=== PATIENT | female | born 1970 | race Caucasian/White ===

== ENCOUNTER 2022-07-19 07:15 | Outpatient (REF) | payer OTHER, SELFPAY ==
[2022-07-19 11:27] LABS: Hematocrit 39.1 % (37.0-47.0); Hemoglobin 12.7 g/dl (12.0-16.0); Mean Corpuscular HGB Conc 32.5 g/dl (31.0-35.0); Mean Corpuscular Hemoglobin 29.7 pg (27.0-33.0); Mean Corpuscular Volume 91.6 fL (80.0-98.0); Platelet Count 224 X10*3/uL (160-400); Red Blood Count 4.27 X10*6/uL (4.20-5.50); Red Cell Distribution Width 12.8 % (11.0-16.0); White Blood Count 3.8 X10*3/uL (4.8-10.8)
[2022-07-19 12:33] LABS: Alanine Aminotransferase 26 U/L (0-31); Albumin Level 4.1 g/dL (3.5-5.0); Alkaline Phosphatase 69 U/L (39-117); Anion Gap 12 (12-20); Aspartate Amino Transferase 27 U/L (5-31); Bilirubin Total 0.6 mg/dL (0.0-1.0); Blood Urea Nitrogen 20 mg/dL (9-16); Carbon Dioxide 27 mmol/L (22-29); Chloride 104 mmol/L (96-108); Cholesterol 206 mg/dL; Estimated Glomerular Filt Rate > 60; Glucose Fasting 94 mg/dL (60-99); HDL Cholesterol 65 mg/dL; LDL Cholesterol Calculated 118 mg/dl; Potassium 4.4 mmol/L (3.3-5.1); Sodium 139 mmol/L (135-145); Total Protein 6.4 g/dL (6.5-8.0); Triglycerides 119 mg/dL
[2022-07-19 12:46] LABS: TSH reflex Free T4 2.31 uIU/mL (0.32-4.0)
[2022-07-19 12:51] LABS: Rheumatoid Factor < 15.0 IU/mL (<15.0)
[2022-07-21 15:46] LABS: Cyclic Citrullinated Peptide <16 UNITS
== END 2022-07-19 07:16 | disposition home or self-care (01) ==
LOC: HO.HMGCLDS 07:15
PROVIDERS: PCP Internal Medicine; Visit Provider Internal Medicine
DX: Z00.00 Encounter for general adult medical examination without abnormal findings (principal); E04.1 Nontoxic single thyroid nodule; M19.90 Unspecified osteoarthritis, unspecified site
CPT/HCPCS: 36415; 80053; 80061; 84443; 85027; 86200; 86431

== ENCOUNTER 2022-08-09 14:26 | Outpatient (REF) | payer OTHER, SELFPAY ==
--- NOTE | ~2022-08-09 | US_ITS ---
EXAMINATION: US PELVIS CLINICAL INFORMATION: Ovarian cyst. COMPARISON: None. TECHNIQUE: Ultrasound of the pelvis is performed using both transabdominal and transvaginal transducers along with Doppler. Transvaginal imaging is performed due to inadequate visualization transabdominally. FINDINGS: UTERUS: The uterus is anteverted retroflex and measures 9.5 x 4.2 x 5.3 cm for a volume of 111 mL. The double wall endometrial thickness is 0.8 mm. The uterus is smooth in contour and has normal myometrial echogenicity. A small 7 x 5 x 7 mm fibroid is noted on the left towards the fundus. Multiple nabothian cysts are present. ADNEXA: The right ovary was removed and is not seen. The left ovary measures 2.6 x 1.4 x 2.0 cm for a volume of 3.8 mL and appears normal. No free fluid is present in the cul-de-sac. US/US pelvic and transvaginal IMPRESSION: Small uterine fibroid. An ovarian cyst is not seen on the current study.
--- NOTE | ~2022-08-09 | US_ITS ---
EXAMINATION: US THYROID CLINICAL INFORMATION: Nontoxic single thyroid nodule. COMPARISON: None TECHNIQUE: Linear transducer manzano-scale and color Doppler examination with attention to the region of the thyroid. FINDINGS: SIZE: Measurements of the thyroid lobes and nodules are given in sagittal, anteroposterior and transverse dimensions respectively. Right Thyroid Lobe: 5.5 x 1.8 x 1.7 cm, volume 8.5 mL. Parenchyma: The gland echotexture is heterogeneous. Thyroid vascularity is increased. Left Thyroid Lobe: 5.9 x 2.3 x 2.2 cm, volume 15.2 mL. Parenchyma: The gland echotexture is heterogeneous. Thyroid vascularity is increased. Isthmus: 0.4 cm in maximum AP dimension. Estimated total number of nodules greater than or equal to 1 cm: 3. Emt P nodules are described as follows: 1. Location: Right mid. Size: 1.1 x 0.8 x 0.8 cm, volume 0.4 mL. Nodule characteristics: Composition: Solid/almost completely solid (2). Echogenicity: Isoechoic (1). Shape: Not taller than wide (0). Margins: Smooth (0). Echogenic Foci: Comet-tail artifacts (0). ACR TI-RADS total points: 3 ACR TI-RADS category: 3 2. Location: Right mid. Size: 0.6 x 0.4 x 0.6 cm, volume 0.07 mL. Nodule characteristics: Composition: Solid/almost completely solid (2). Echogenicity: Isoechoic (1). Shape: Not taller than wide (0). Margins: Smooth (0). Echogenic Foci: None (0). ACR TI-RADS total points: 3 ACR TI-RADS category: 3 3. Location: Left superior/mid. Size: 2.1 x 1.4 x 2.1 cm, volume 3.2 mL. Nodule characteristics: Composition: Solid/almost completely solid (2). Echogenicity: Isoechoic (1). Shape: Not taller than wide (0). Margins: Smooth (0). Echogenic Foci: None (0). ACR TI-RADS total points: 3 ACR TI-RADS category: 3 4. Location: Left mid. Size: 1.4 x 1.4 x 1.3 cm, volume 1.3 mL. Nodule characteristics: Composition: Solid/almost completely solid (2). Echogenicity: Isoechoic (1). Shape: Taller than wide (3). Margins: Smooth (0). Echogenic Foci: None (0). ACR TI-RADS total points: 6 ACR TI-RADS category: 4 5. Location: Isthmus. Size: 0.5 x 0.4 x 0.6 cm, volume 0.06 mL. Nodule characteristics: Composition: Spongiform (0). Echogenicity: Anechoic (0). Shape: Not taller than wide (0). Margins: Smooth (0). Echogenic Foci: None (0). ACR TI-RADS total points: 0 ACR TI-RADS category: 1 NODES: No lymphadenopathy is seen in the tissue surrounding the thyroid gland. US/US thyroid IMPRESSION: Enlarged thyroid gland, especially left lobe. There are bilateral thyroid nodules. The left midpole nodule with high TI-RADS category and total points is suspicious. Recommend ultrasound-guided biopsy. ACR TI-RADS RECOMMENDATION REFERENCE: Ultrasound-guided fine-needle aspiration, followup ultrasound, no further follow up. * TR1 (0 point) and TR 2 (2 points): No FNA or follow up. * TR3 (3 points): FNA if more than or equal to 2.5 cm in maximum dimension, followup ultrasound in 1, 3 and 5 years if 1.5 to 2.4 cm in maximum dimension. * TR4 (4-6 points): FNA if more than or equal to 1.5 cm in maximum dimension, followup ultrasound in 1, 2, 3 and 5 years if 1 to 1.4 cm in maximum dimension. * TR5 (more than or equal to 7 points): FNA if more than or equal to 1 cm in maximum dimension, followup ultrasound every year for 5 years if 0.5 to 0.9 cm in maximum dimension. * TR3, TR4 or TR5 nodules that are below the size threshold for followup receive no follow up.
== END 2022-08-09 14:27 | disposition home or self-care (01) ==
LOC: HO.US 14:26
PROVIDERS: Visit Provider Internal Medicine
DX: N83.209 Unspecified ovarian cyst, unspecified side (principal); E04.1 Nontoxic single thyroid nodule
CPT/HCPCS: 76536; 76830; 76856

== ENCOUNTER → 2022-08-19 15:03 | Outpatient (BNVA) | payer OTHER, SELFPAY | PROVIDERS: PCP Internal Medicine; Visit Provider Internal Medicine | DX: E04.2 Nontoxic multinodular goiter (principal) | CPT/HCPCS: 99202 ==

== ENCOUNTER 2022-08-22 15:31 | Outpatient (REF) | payer OTHER, SELFPAY ==
[2022-08-24 14:55] LABS: H Pylori Breath Test Positive (Negative)
== END 2022-08-22 15:32 | disposition home or self-care (01) ==
LOC: HO.LNP 15:31
PROVIDERS: PCP Internal Medicine; Visit Provider Nurse Practitioner Family
DX: Z01.818 Encounter for other preprocedural examination (principal); K21.9 Gastro-esophageal reflux disease without esophagitis; K64.9 Unspecified hemorrhoids
CPT/HCPCS: 83013; 99202; 99212

== ENCOUNTER 2022-08-24 16:01 | Outpatient (REF) | payer OTHER, SELFPAY ==
--- NOTE | ~2022-08-24 | CT_ITS ---
EXAMINATION: CT SOFT TISSUE NECK WITHOUT CONTRAST CLINICAL INFORMATION: Nontoxic multinodular thyroid goiter. COMPARISON: Thyroid ultrasound from 08/09/2022. TECHNIQUE: Multidetector helical imaging was performed in the axial plane without intravenous contrast. Multiple axial reformats and coronal/sagittal reconstructions were created the technologist workstation for review. This CT examination was performed using dose optimization techniques as appropriate, variously including the following: *Automated exposure control. *Adjustment of mA and/or kV according to patient size (this includes techniques or standardized protocols for targeted exams where dose is matched to indication/reason for exam; i.e. extremities or head). *Use of iterative reconstruction technique. DLP: 293 mGy-cm FINDINGS: Redemonstrated multinodular, heterogeneous thyroid enlargement, more notably affecting the left greater than right thyroid lobes. Individual thyroid nodules are better characterized on recent thyroid ultrasound. No significant cutaneous thickening or subcutaneous inflammation. No discrete fluid collection within the deep tissues of the neck. The premaxillary, retromaxillary, pterygopalatine fossa, orbital apical, parapharyngeal, and prelaryngeal adipose tissue is maintained. Normal appearance of the parotid and submandibular glands. Scattered subcentimeter lymph nodes bilaterally, none of which are pathologically enlarged. No demonstrated focal lesions or abnormal enhancement within the intrinsic tissues of the tongue or floor of mouth. Normal mucosal contours of the pharynx and larynx. Normal appearance of the hyoid bone, thyroid cartilage, or cartilaginous trachea. The airways remains widely patent. No radiopaque foreign bodies. The atlantooccipital and atlantoaxial articulations remain well aligned. Mild reversal the normal cervical lordosis centered on C4-C5. No evidence of acute fracture or subluxation of the cervical spine. The vertebral body heights are maintained. Mild to moderate degenerative disc disease from C2-C7. There is no prevertebral soft tissue swelling. The visualized portion of the skull base is without significant abnormalities. The visualized paranasal sinuses are clear. The mastoid air cells and middle ear cavities are clear. No demonstrated significant periapical odontogenic disease. CT Upper Chest: The visualized lung apices and upper mediastinum are within normal limits. CT/CT soft tissue neck wo IV con IMPRESSION: 1. Redemonstrated multinodular thyroid goiter. Individual thyroid nodules are better characterized on recent thyroid ultrasound. 2. No demonstrated additional mass lesion, collection, or pathologically enlarged lymphadenopathy of the soft tissues of the neck.
== END 2022-08-24 16:02 | disposition home or self-care (01) ==
LOC: HO.CT 16:01
PROVIDERS: Visit Provider Internal Medicine
DX: E04.2 Nontoxic multinodular goiter (principal)
CPT/HCPCS: 70490

== ENCOUNTER 2023-02-10 09:24 | Day surgery (SDC) | payer OTHER, SELFPAY ==
[2023-02-06 13:30] VITALS: BMI 25.0
--- NOTE | 2023-02-09 13:10 | P.CONAN_ITS ---
Documented by User: Susie Carrillo NP 02/09/23 13:10 HPI - Anesthesia Eval Consult details Narrative: 52yo F for Upper Endoscopy and Colonoscopy PMFSH Active Problems Active Problems: All Active Problems (Updated 02/06/23 @ 13:29 by Arielle Mattson RN) Annual physical exam (Acute) Thyroid nodule (Acute) Hx of screening mammography (Acute) Ovarian cyst (Acute) Arthritis (Acute) Multinodular thyroid (Acute) Past Medical History Medical History Arthritis Gastric ulcer Hx of ovarian cyst Multinodular thyroid PONV (postoperative nausea and vomiting) Family History Family History Father No problems noted. Mother Hypothyroidism Maternal Grandmother Cervical cancer Surgical History Surgical History History of esophagogastroduodenoscopy (EGD) Hx of section S/P removal of right ovary Social History Social History Household Members Other:: works as [employer], dance for exercise Housing: House Alcohol intake: current Alcohol intake frequency: a few times a week Patient Tobacco Use Status: Current someday Tobacco user Tobacco use type: Cigarette Cigarettes Per Day: 4 Smoked in Last 30 Days: Yes e-Cigarette/Vaping Use: Never Used Use of substances other than those prescribed or required for medical reasons: No Are you DNR?: No Advance Directives: No Advance Directives Information Provided: Yes Current occupational status: employed Cognitive needs: No Hearing needs: No Vision needs: Yes Meds Allergies Allergy/AdvReac Type Severity Reaction Status Date / Time Penicillins AdvReac Severe childhood Verified 02/10/23 09:44 allergy- passed out Exam Exam Date and Time: February 09, 2023 1310 Height,Weight and Vital Signs: Height 5 ft 2 in Weight 62.142 kg Assessment and Plan Assessment Anesthesia Assessment: Chart Reviewed Documented by User: Sandy Gates MD 02/10/23 10:09 [facility] Active Problems Active Problems: All Active Problems (Updated 02/06/23 @ 13:29 by Arielle Mattson RN) Annual physical exam (Acute) Thyroid nodule (Acute) Hx of screening mammography (Acute) Ovarian cyst (Acute) Arthritis (Acute) Multinodular thyroid (Acute) Someday Smoker - last cigarette yesterday Past Medical History Medical History Arthritis Gastric ulcer Hx of ovarian cyst Multinodular thyroid PONV (postoperative nausea and vomiting) Family History Family History Father No problems noted. Mother Hypothyroidism Maternal Grandmother Cervical cancer Family history of problems with anesthesia: No Surgical History Surgical History History of esophagogastroduodenoscopy (EGD) Hx of section S/P removal of right ovary History of Problems with Anesthesia: No Social History Social History Household Members Other:: works as hairdresser, dance for exercise Housing: House Alcohol intake: current Alcohol intake frequency: a few times a week Patient Tobacco Use Status: Current someday Tobacco user Tobacco use type: Cigarette Cigarettes Per Day: 4 Smoked in Last 30 Days: Yes e-Cigarette/Vaping Use: Never Used Use of substances other than those prescribed or required for medical reasons: No Are you DNR?: No Advance Directives: No Advance Directives Information Provided: Yes Current occupational status: employed Cognitive needs: No Hearing needs: No Vision needs: Yes Meds Allergies Allergy/AdvReac Type Severity Reaction Status Date / Time Penicillins AdvReac Severe childhood Verified 02/10/23 09:44 allergy- passed out Exam Height,Weight and Vital Signs: Height 5 ft 2 in Weight 62.142 kg Vital Signs Temp Pulse Resp BP Pulse Ox O2 Del Method 02/10/23 09:49 98.0 F 99 16 125/89 97 Room Air Airway Mallampati Class: II TM Dist: >3cm Neck ROM: Full Loose/Missing/Broken Teeth: No (Denies broken, loose, missing teeth) Heart: RRR Lungs: CTAB Assessment and Plan Assessment Anesthesia Assessment: Anesthesia Plan Discussed Final Anesthetic Review Family History of Problems with Anesthesia: No History of Problems with Anesthesia: No NPO: Yes ASA Class: II Final Preanesthetic Review: No Changes in Pt Med Stat, Meds/Allgs Chart Reviewed, Consent Obtained/Reviewed and Anes Risks/Benef Reviewed Patient Risk: Low Procedure Risk: Low Assessment/Block/Sedation in SS: Assess/Block/Sedation-SS Anesthetic Plan Anesthetic Plan: MAC: Disposition: Standard PACU
[2023-02-10 09:44] VITALS: BMI 26.6
[2023-02-10 09:49] VITALS: BP 125/89; PULSE 99; RESP 16; TEMP 36.7; O2SAT 97
[2023-02-10] MEDS: Lactated Ringers 1,000 ML 100 ML IVCONT (09:59)
--- NOTE | 2023-02-10 10:14 | MHC.SHP ---
Pre-Procedural Eval Section A Date of Service: 02/10/23 The patient is an INPATIENT: No The History & Physical has been completed within 30 days and I have reviewed it.: No Section B Chief Complaint: Colon cancer screening Details of Present Illness: Colon cancer screening, GERD Relevant Family History (Specify if Yes): No Relevant Social History: Tobacco Use Present Medications: see Short Stay Collaborative assessment Medical History: Significant History (Hx of ovarian cyst Multinodular thyroid) History of Previous Operations: Relevant previous surgery/procedure and date(s) (Hx of section Hx of ovarian cyst) Allergies: Allergies Allergy/AdvReac Type Severity Reaction Status Date / Time Penicillins AdvReac Severe childhood Verified 02/10/23 09:44 allergy- passed out Review of Systems Sugical H&P ROS: Negative: Constitution, Cardiovascular, Respiratory and Gastrointestinal Exam Surgical H&P Exam: Normal: Heart, Normal: Lungs, Normal: Extremities and Normal: Abdomen Plan Diagnosis/Plan: Unchanged I have reviewed the history and physical and performed a pertinent physical examination on my patient. No changes have occurred unless specified. Time Spent With Patient Time: Total time managing care of this patient today ____ minutes.
--- NOTE | 2023-02-10 10:50 | P.BOP_ITS ---
Brief Operative Note Date of Service: 02/10/23 Pre-op diagnosis: Colon cancer screening, GERD Post-op diagnosis: other ( gastritis, GERD, duodenal bulb ulcer, colon polyp, diverticulosis, hemorrhoid) Procedure: FLEXIBLE TRANSORAL UPPER GASTROINTESTINAL ENDOSCOPY WITH BIOPSIES AND COLONOSCOPY TILL CECUM WITH SNARE POLYPECTOMY Surgeon: Cat Callahan MD Anesthesia: MAC Was an [place] Operator used for this Procedure?: No [place] Operator: Abby Cheatham Estimated blood loss (mL): 1 Pathology: other ( A: gastric antrum r/o H. pylori B: ulcer duodenal bulb C: sigmoid polyp at 25) Condition: stable Disposition: PACU
--- NOTE | 2023-02-10 10:50 | W.PM.OPN ---
Operative Note Operative Note Date of Service: 02/10/23 Narrative: Pre-op diagnosis: Colon cancer screening, GERD Post-op diagnosis:?other ( gastritis, GERD, duodenal bulb ulcer, colon polyp, diverticulosis, hemorrhoid) Surgeon: Cat Callahan MD Anesthesia:?MAC FLEXIBLE TRANSORAL UPPER GASTROINTESTINAL ENDOSCOPY WITH BIOPSIES AND COLONOSCOPY TILL CECUM WITH SNARE POLYPECTOMY UPPER ENDOSCOPY Consent: Indications for the procedure and potential complications of bleeding, perforation, reaction to medications and missed diagnosis were discussed with the patient and informed consent was obtained. Instrument: Olympus GIF H 190 mid size upper endoscope Monitoring: Vital signs and clinical assessment, continuous EKG monitoring, Pulse oximetry, Carbon Dioxide monitoring and blood pressure monitoring were done throughout the procedure. Procedure: The patient was placed in the left lateral decubitis position and pre-procedure medications were administered and a bite block was placed. The endoscope was inserted into the mouth and advanced under direct vision to the third part of duodenum. A careful inspection was made as the upper endoscope was withdrawn including a retroflexed examination of the proximal stomach; Findings and interventions are described below. Findings: Larynx: Normal Esophagus: GE junction at 40 cms. No esophagitis or Can's. Stomach: Mild gastric erythema. Biopsies were obtained. Grade 2 flap valve on retroflexed examination of the cardia. Duodenum: Edematous folds in the apex of the bulb with a few 5-10 mm healing ulcers - biopsied. Normal descending duodenum Intervention: Biopsies as noted above COLONOSCOPY PROCEDURE NOTE Consent: Indications for the procedure and potential complications of bleeding, perforation, reaction to medications and missed diagnosis were discussed with the patient and informed consent was obtained. Instrument: Olympus PCF H 190 L variable stiffness pediatric colonoscope Monitoring: Vital signs and clinical assessment, intermittent blood pressure monitoring, continuous EKG monitoring, Pulse oximetry and Carbon Dioxide monitoring were done throughout the procedure. Colon withdrawl time was 20 minutes. Procedure: The patient was placed in the left lateral decubitis position and pre-procedure medications were administered. After a digital rectal examination of the ano-rectum, the video colonoscope was inserted into the rectum and advanced through the colon to the cecum. The colonoscope was slowly withdrawn in a retrograde panoramic fashion and the colon mucosa was carefully examined including a retroflexed view of the rectum. Findings and interventions are described below. Procedure Difficulty: colon was long and tortuous and there was some loop formation - no maneuvers were required Findings: Terminal Ileum: Not evaluated Cecum: Normal Ascending Colon: Normal Transverse Colon: Normal Descending Colon: moderate diverticulosis Sigmoid Colon: A 10-12 mm sessile polyp at 25 cms removed with a hot snare Severe diverticulosis Rectum: Normal Ano-rectum: Small internal hemorrhoids Colon preparation: Fair due to thin layer of adherent stools which could not be flushed. No additional large lesions were seen but smaller polyps could be missed Impression and Post Procedure Diagnosis: Endoscopy Findings: STOMACH: Mild gastric erythema. Biopsies were obtained. Grade 2 flap valve on retroflexed examination of the cardia DUODENUM: Edematous folds in the apex of the bulb with a few 5-10 mm healing ulcers - biopsied. Colonoscopy Findings: One medium sized polyp removed Moderate to severe diverticulosis seen in the left colon Small hemorrhoids on retroflexed exam. Plan: Await pathology results Patient has an appointment on 02/24/23 in the [facility] with Davida Ovalles NP. Repeat Colonoscopy interval based on path results - in 3 years if polyps are adenomatous and due to fair prep. Above findings were reviewed with the patient and PUD, colon polyps and diverticulosis handouts were given in the discharge area. Pt advised to take Pantoprazole daily instead of p.r.n. She admitted to taking Ibuprofen prn.
[2023-02-10 11:32] VITALS: BP 105/62; PULSE 89; RESP 16; TEMP 36.4; O2SAT 100
[2023-02-10 11:47] VITALS: BP 106/71; PULSE 73; RESP 16; TEMP 36.7; O2SAT 99
== END 2023-02-10 12:15 | disposition home or self-care (01) ==
PROVIDERS: PCP Internal Medicine; Visit Provider Internal Medicine Gastroenterology
PROC: (CPT 45385; principal; 2023-02-10 10:30)
DX: Z12.11 Encounter for screening for malignant neoplasm of colon (principal); D12.5 Benign neoplasm of sigmoid colon; K57.30 Diverticulosis of large intestine without perforation or abscess without bleeding; K64.8 Other hemorrhoids; K21.9 Gastro-esophageal reflux disease without esophagitis; K29.50 Unspecified chronic gastritis without bleeding; B96.81 Helicobacter pylori [H. pylori] as the cause of diseases classified elsewhere; K26.7 Chronic duodenal ulcer without hemorrhage or perforation; E04.2 Nontoxic multinodular goiter; Z90.721 Acquired absence of ovaries, unilateral; Z88.0 Allergy status to penicillin; F17.210 Nicotine dependence, cigarettes, uncomplicated
CPT/HCPCS: 45385; 43239; 88305; 88342; J2405

== ENCOUNTER 2023-02-23 08:53 | Outpatient (REF) | payer OTHER, SELFPAY ==
--- NOTE | 2023-02-23 09:42 | PM.OP ---
Brief Operative Note Date of Service: 02/23/23 Pre-op diagnosis: Multinodular Thyroid Procedure: This is doctor Viki Montana. This is an ultrasound-guided fine-needle aspiration report. Indication: Multinodular Thyroid Porcedure: Procedure was explained to the patient. Alternatives, the risk and benefits were discussed. Written consent was obtained. A time-out was also obtained. After sterile preparation, 1 ml of 1% lidocaine solution was applied subcutaneously for anesthetic effect. Then Fine-needle aspiration of a left mid pole 2.1 cm thyroid nodule was performed using direct ultrasound guidance to confirm accurate needle placement. Three aspirations were made using 27 gauge needles. Samples were submitted for cytology. One pass was dedicated for [employer] Gene sequencing nitrate operator testing. Our attention was then turned to the left mid pole 1.4 cm thyroid nodule. Then Fine-needle aspiration of this nodule was performed using direct ultrasound guidance to confirm accurate needle placement. One aspirations was made using a 27 gauge needle. The sample was submitted for cytology. The patient then became anxious and was unable to tolerate additional passess. FNA biopsy was aborted. No further passess were attempted for her left mid pole 1.4 cm thyroid nodule or her right mid pole 1.1 cm thyroid nodule. The patient will be rescheduled for these with anxiolytic medication. Aftercare instructions were provided. Impression: Uncomplicated fine needle aspiration biopsy of a left mid pole 2.1 cm thyroid nodule and a left mid pole 1.4 cm thyroid nodule under ultrasound guidance. Surgeon: Viki Montana, DO Was an Tool Machine Set Up Operator used for this Procedure?: No Estimated blood loss (mL): 0
[2023-02-23] MEDS: Lidocaine HCl 1 % MPF 5 ML VIAL SUBCUT (09:57)
== END 2023-02-23 08:54 | disposition home or self-care (01) ==
LOC: HO.US 08:53
PROVIDERS: Visit Provider Internal Medicine
DX: E04.2 Nontoxic multinodular goiter (principal)
CPT/HCPCS: 10005; 88172; 88173; 88177

== ENCOUNTER → 2023-02-24 15:39 | Outpatient (BNVA) | payer OTHER, SELFPAY | PROVIDERS: PCP Internal Medicine; Visit Provider Nurse Practitioner Family | DX: K57.90 Diverticulosis of intestine, part unspecified, without perforation or abscess without bleeding (principal); K26.9 Duodenal ulcer, unspecified as acute or chronic, without hemorrhage or perforation; D12.5 Benign neoplasm of sigmoid colon; K21.9 Gastro-esophageal reflux disease without esophagitis; A04.8 Other specified bacterial intestinal infections | CPT/HCPCS: 99212 ==

== ENCOUNTER 2023-03-09 11:12 | Outpatient (REF) | payer OTHER, SELFPAY ==
[2023-03-09 13:53] LABS: MANUAL DIFF FLAG NO
[2023-03-09 14:03] LABS: Basophils Percent Auto 0.7 % (0-2); Eosinophils Absolute Auto 0.1 X10*3/uL (0.0-0.4); Eosinophils Percent Auto 3.1 % (0-4); Hematocrit 41.3 % (37.0-47.0); Hemoglobin 13.6 g/dl (12.0-16.0); Imm Gran Abs Auto 0.01 X10*3/uL (0.00-0.03); Imm Gran Pct Auto 0.2 % (0.0-0.4); Lymphocytes Absolute Auto 1.7 X10*3/uL (1.2-4.9); Mean Corpuscular HGB Conc 32.9 g/dl (31.0-35.0); Mean Corpuscular Hemoglobin 29.4 pg (27.0-33.0); Mean Corpuscular Volume 89.4 fL (80.0-98.0); Mean Platelet Volume 10.5 fL (9.4-12.3); Monocytes Absolute Auto 0.3 X10*3/uL (0.1-1.2); Monocytes Percent Auto 7.3 % (2-11); Neutrophils Percent Auto 47.7 % (45-73); Platelet Count 191 X10*3/uL (160-400); Red Blood Count 4.62 X10*6/uL (4.20-5.50); Red Cell Distribution Width 11.7 % (11.0-16.0); White Blood Count 4.2 X10*3/uL (4.8-10.8)
[2023-03-09 14:20] LABS: Alanine Aminotransferase 28 U/L (0-31); Albumin Level 4.5 g/dL (3.5-5.0); Alkaline Phosphatase 52 U/L (39-117); Anion Gap 11 (12-20); Aspartate Amino Transferase 24 U/L (5-31); Bilirubin Total 1.2 mg/dL (0.0-1.0); Blood Urea Nitrogen 15 mg/dL (9-16); Calcium 9.3 mg/dL (8.4-10.2); Carbon Dioxide 30 mmol/L (22-29); Chloride 104 mmol/L (96-108); Estimated Glomerular Filt Rate > 60; Glucose Fasting 99 mg/dL (60-99); Potassium 4.4 mmol/L (3.3-5.1); Rheumatoid Factor < 13.0 IU/mL (<15.0); Sodium 141 mmol/L (135-145); Total Protein 6.6 g/dL (6.5-8.0)
[2023-03-09 14:40] LABS: TSH reflex Free T4 0.07 uIU/mL (0.32-4.0); Vitamin D 25-OH Total 45.2 ng/mL (>30)
[2023-03-09 16:24] LABS: Free T4 (Free Thyroxine) 1.31 ng/dL (0.71-1.85)
== END 2023-03-09 11:13 | disposition home or self-care (01) ==
LOC: HO.HMGCLDS 11:12
PROVIDERS: PCP Internal Medicine; Visit Provider Internal Medicine
DX: E04.2 Nontoxic multinodular goiter (principal); Z98.890 Other specified postprocedural states; R00.2 Palpitations; D64.9 Anemia, unspecified; M19.90 Unspecified osteoarthritis, unspecified site; E55.9 Vitamin D deficiency, unspecified
CPT/HCPCS: 36415; 80053; 82306; 84439; 84443; 85025; 86431; 99212

== ENCOUNTER → 2023-04-10 13:31 | Outpatient (REF) | payer OTHER, SELFPAY ==
--- NOTE | 2023-04-10 13:33 | HM_ITS ---
Conclusion: 1. Patient was monitored for total period of 3 days and 54 minutes 2. Baseline was normal sinus rhythm with average heart of 91 beats per minute 3. No significant pauses or bradycardia noted 4. Very rare PACs noted 5. Patient reported 1 event of strong heart rate correlated with sinus tachycardia MTDD
== END ==
LOC: HO.CARD 13:31
PROVIDERS: PCP Internal Medicine; Visit Provider Internal Medicine
DX: R00.2 Palpitations (principal)
CPT/HCPCS: 93242

== ENCOUNTER 2023-06-16 13:30 | Outpatient (AMB) | payer OTHER, SELFPAY ==
--- NOTE | 2023-06-16 13:36 | MHC.OFFVIS ---
Intake Vital Signs 06/16/23 13:45 Height 5 ft 2 in Weight 139 lb BMI 25.4 BP 116/67 Blood Pressure Location Lt brachial Position Sitting Pulse 84 Intake Visit Reasons: Follow up 3 months Intake Note: Patient follow up for Diverticulosis. Patient cc: heartburn, abdominal cramping, and between diarrhea and constipation. Informatics Pharmacist Required: No Accompanied by: Self / Same As Patient Allergies Penicillins Adverse Reaction (Severe, Verified 06/16/23 13:35) childhood allergy- passed out HPI Follow up 3 months HPI Details LAST VISIT GERD (gastroesophageal reflux disease) Continue avoiding dietary triggers late night snacking. Patient was encouraged to start taking the pantoprazole every day. Patient was encouraged to stay upright for minimal 3 hours after meals. Helicobacter pylori (H. pylori) Patient is on her 10 day of treatment for H pylori. When patient returns we will check for eradication Duodenal ulcer Diagnosed with duodenal ulcer. Patient states that she was diagnosed in the past with duodenal ulcer when she was in her 20s. Patient was advised to take pantoprazole every day. I will add sucralfate at bedtime. Patient was encouraged to call us if she will have any issues Tubular adenoma Diverticulosis Diverticulosis found in sigmoid colon. Patient was encouraged to increase fiber. Patient can take also MiraLax to help her empty her bowels better. Patient was encouraged to avoid roughage. Eat vegetables that are cooked or steamed. Patient will return to my office in 3 months, sooner on as needed basis. Patient is agreeable to this plan and verbalizes understanding of instructions. She was given the opportunity to ask questions and all questions answered. ? Thank you for allowing me to participate in her care Plan Medications New pantoprazole take one tablet half an hour before breakfast 40 mg PO DAILY 90 tabs 2RF K21.9 sucralfate 10 mL PO BEDTIME 400 mL 3RF K21.9 polyethylene glycol 3350 (Miralax) 17 grams PO DAILY 510 grams 2RF Discontinued metronidazole Discontinued Reason: Duplicate 500 mg PO BID 14 days 28 tabs 0RF B96.81, K29.70 clarithromycin Discontinued Reason: Patient no longer taking 500 mg PO BID 14 days 28 tabs 0RF B96.81, K29.70 TODAY'S VISIT Patient is here today for follow-up. Patient reports that since the last time I have seen her she has been having epigastric discomfort for occasionally postprandially as well as postprandial abdominal bloating. Patient stopped taking sucralfate and pantoprazole couple months ago. Recently patient had laparoscopic right oophorectomy. Was doing well and just recently started having symptoms of abdominal pain and discomfort. Patient states that she has been doing more than usual. Recently patient has been eating more sweets, drank Coca-Cola and states that she never really drinks soda. Patient also had processed him and she usually does not eat processed cold got. Patient denies melena, hematochezia, unintentional weight loss or ribbon like stools. Patient denies any dyspepsia, dysphagia or odynophagia. Patient reports abdominal bloating that is worse if she does not have a complete bowel movement. [facility] Medical History Arthritis Diverticulosis Gastric ulcer Hx of ovarian cyst Multinodular thyroid PONV (postoperative nausea and vomiting) Tubular adenoma Surgical History History of esophagogastroduodenoscopy (EGD) Hx of section Hx of colonoscopy S/P removal of right ovary Family History Father Substance use disorder Mother Hypothyroidism Maternal Grandmother Cervical cancer Social History Household Members Other:: works as hairdresser, dance for exercise Housing: House Alcohol intake: current Alcohol intake frequency: a few times a week Patient Tobacco Use Status: Current someday Tobacco user Tobacco use type: Cigarette Cigarettes Per Day: 4 e-Cigarette/Vaping Use: Never Used Current occupational status: employed Cognitive needs: No Hearing needs: No Vision needs: Yes Review of Systems Const Denies weight gain and Denies weight loss ENT Reports no additional complaints, Denies dysphagia and Denies odynophagia Card Reports no additional complaints Resp Reports no additional complaints GI Reports abdominal pain, Denies belching, Denies melena, Reports bloating, Denies change in bowel habits, Reports constipation, Denies dysphagia, Denies excessive flatus, Denies dyspepsia, Denies heartburn, Denies diarrhea, Reports loose stools, Denies nausea, Denies odynophagia and Denies vomiting Reports no additional complaints Musc Reports no additional complaints Neuro Reports no additional complaints Psych Reports no additional complaints Endo Reports no additional complaints Physical Exam Vital Signs: Last Vital Signs Pulse 84 06/16/23 13:45 BP 116/67 06/16/23 13:45 BMI result Body Mass Index 25.4 Const General: cooperative, healthy appearing and comfortable Nutritional Appearance: average body habitus Orientation/consciousness: patient oriented x3 Limitations: no limitations HEENT Head: Yes normal to inspection Ears: hearing grossly normal bilaterally General nose exam: Normal external nose present Face and sinus: Yes normal facial exam Mouth: Normal oral and palatal mucosa present Throat: Yes posterior oropharynx normal Eyes General: appearance normal, both eyes and all related structures Eyelids: Yes eyelids normal Conjunctivae: conjunctivae normal Sclerae: sclerae normal Pupils: Equal, round and reactive pupils present Neck Neck: Yes normal visual inspection, Yes full ROM, Yes no lymphadenopathy, Yes trachea midline and Yes supple Thyroid: Thyroid normal Lymphatic: no lymphadenopathy noted Chest Chest palpation & inspection: normal inspection of the chest Resp Effort & Inspection: normal respiratory effort and able to speak in complete sentences Auscultation: clear to auscultation bilaterally Cardio Rate: regular rate Rhythm: regular rhythm Heart sounds: S1 normal heart sound present and S2 normal heart sound present Peripheral pulses: Peripheral pulses 2+ throughout GI Inspection: Yes normal to inspection and No distended Palpation (GI): No hepatosplenomegaly present and No Rebound tenderness present Percussion: Yes normal to percussion Auscultation: normal bowel sounds Back/Spine/Pelvis Cervical Spine: cervical ROM normal and No cervical muscular tenderness Thoracic/Lumbar Spine: thoracic and lumbar spine normal to inspection Skin General skin exam: no rashes or lesions noted, elasticity normal and turgor normal Neuro General: patient oriented x3 Cranial nerves: Yes Equal, round and reactive pupils present Extrem General: Yes normal to inspection, Yes full ROM and Yes capillary refill normal Psych Appearance: grossly normal Mental Status: mental status grossly normal Speech and movement: Normal speech and movement present Assessment & Plan Assessment & Plan (1) Diverticulosis: Code(s): K57.90 - Diverticulosis of intestine, part unspecified, without perforation or abscess without bleeding Plan: Continue high-fiber diet (2) GERD (gastroesophageal reflux disease): Code(s): K21.9 - Gastro-esophageal reflux disease without esophagitis Qualifiers: Esophagitis presence: esophagitis presence not specified Qualified Code(s): K21.9 - Gastro-esophageal reflux disease without esophagitis Plan: Patient can continue taking pantoprazole daily. Discussed with patient avoiding dietary triggers in late night snacking. Staying upright for minimal 3 hours after meals discussed with patient. Patient was encouraged to decrease the amount of coffee did she is drinking and avoid drinking soda. History of H pylori in the past, will check for H pylori again and treat empirically if positive. (3) Postprandial abdominal bloating: Code(s): R14.0 - Abdominal distension (gaseous) Plan: Postprandial abdominal bloating. Discussed with patient high fiber up diet and eliminating her bowels completely (4) IBS (irritable bowel syndrome): Code(s): K58.9 - Irritable bowel syndrome without diarrhea Qualifiers: Irritable bowel syndrome type: with both diarrhea and constipation Qualified Code(s): K58.2 - Mixed irritable bowel syndrome Plan: Postprandial abdominal bloating occasionally loose stools and constipation. Patient will try to move her bowels better. She was encouraged to drink plenty fluids and increase activity to promote better bowel motility. Will FODMAP diet discussed with patient. List of food recommended as well as list of food to avoid given to patient. Will check for pancreatic insufficiency, lipase, liver enzymes vitamin B12, folate, vitamin-D levels. I will see her in 5 weeks, sooner on as needed basis. Patient is agreeable to this plan and verbalizes understanding of instructions. She was given the opportunity to ask questions and all questions answered. Thank you for allowing me to participate in her care Orders: Orders Pancreatic Elastase-1 Today R10.9 - Unspecified abdominal pain Vitamin B12 and Folate Today R19.7 - Diarrhea, unspecified Lipase Today R10.9 - Unspecified abdominal pain Liver Panel Today R10.9 - Unspecified abdominal pain Vitamin D 25-OH (D2 and D3) Today E55.9 - Vitamin D deficiency, unspecified Transglutaminase IgA Today R10.9 - Unspecified abdominal pain Transglutaminase Ab IgG Today R10.9 - Unspecified abdominal pain H pylori Ag Stool Today K21.9 - Gastro-esophageal reflux disease without esophagitis Coding Level of Care Code Est Pt Level 4 (03881) Diagnoses Diverticulosis K57.90 GERD (gastroesophageal reflux disease) K21.9 Esophagitis presence: esophagitis presence not specified Postprandial abdominal bloating R14.0 IBS (irritable bowel syndrome) K58.2 Irritable bowel syndrome type: with both diarrhea and constipation Time Spent (min) 35 Comment 25 minutes spent with patient and additional 10 minutes spent reviewing her records
[2023-06-16 13:45] VITALS: BP 116/67; PULSE 84; BMI 25.4
== END 2023-06-16 14:12 | disposition home or self-care (01) ==
PROVIDERS: PCP Internal Medicine; Visit Provider Nurse Practitioner Family
DX: K57.90 Diverticulosis of intestine, part unspecified, without perforation or abscess without bleeding (principal); K21.9 Gastro-esophageal reflux disease without esophagitis; R14.0 Abdominal distension (gaseous); K58.2 Mixed irritable bowel syndrome
CPT/HCPCS: 99214

== ENCOUNTER 2023-06-16 13:30 | Outpatient (REF) | payer OTHER, SELFPAY ==
[2023-06-16 16:52] LABS: Alanine Aminotransferase 16 U/L (0-31); Albumin Level 4.4 g/dL (3.5-5.0); Alkaline Phosphatase 66 U/L (39-117); Aspartate Amino Transferase 19 U/L (5-31); Bilirubin Direct 0.2 mg/dL (0.0-0.5); Bilirubin Total 0.7 mg/dL (0.0-1.0); Lipase 15 U/L (8-78); Total Protein 7.5 g/dL (6.5-8.0)
[2023-06-16 21:15] LABS: Folate 15.7 ng/mL (> or = 4.0); Vitamin B12 492 pg/mL (200-900)
[2023-06-19 19:17] LABS: Transglutaminase Ab IgG <1.0 U/mL; Transglutaminase IgA <1.0 U/mL
[2023-06-22 12:53] LABS: Vitamin D 25-OH, D2 <4 ng/mL; Vitamin D 25-OH, D3 40 ng/mL; Vitamin D 25-OH, Total 40 ng/mL (30-100)
== END 2023-06-16 13:31 | disposition home or self-care (01) ==
LOC: HO.LAB 13:30
PROVIDERS: PCP Internal Medicine; Visit Provider Nurse Practitioner Family
DX: E55.9 Vitamin D deficiency, unspecified (principal); R10.9 Unspecified abdominal pain; R19.7 Diarrhea, unspecified; K21.9 Gastro-esophageal reflux disease without esophagitis
CPT/HCPCS: 36415; 80076; 82306; 82607; 82746; 83690; 86364; 99212

== ENCOUNTER 2023-06-17 08:10 | Outpatient (REF) | payer OTHER, SELFPAY ==
[2023-06-26 16:33] LABS: Pancreatic Elastase-1 >500 mcg/g
== END 2023-06-17 08:11 | disposition home or self-care (01) ==
LOC: HO.HMGCLNP 08:10
PROVIDERS: Nurse Practitioner Family; PCP Internal Medicine; Visit Provider Internal Medicine
DX: K21.9 Gastro-esophageal reflux disease without esophagitis (principal); R10.9 Unspecified abdominal pain
CPT/HCPCS: 82656; 87338

== ENCOUNTER 2023-06-22 07:49 | Outpatient (REF) | payer OTHER, SELFPAY | END 2023-06-22 07:50 | disposition home or self-care (01) | LOC: HO.US 07:49 | PROVIDERS: PCP Internal Medicine; Visit Provider Internal Medicine | DX: Z13.89 Encounter for screening for other disorder (principal) ==

== ENCOUNTER 2023-08-08 13:50 | Outpatient (AMB) | payer OTHER, SELFPAY ==
[2023-08-08 13:51] VITALS: BP 104/66; PULSE 88; O2SAT 98; BMI 25.8
--- NOTE | 2023-08-08 13:51 | A.OFFPC_ITS ---
Vital Signs 08/08/23 13:51 Height 5 ft 2 in Weight 141 lb BMI 25.8 BP 104/66 Blood Pressure Location Lt brachial Position Sitting Pulse 88 Pulse Source Pulse Oximeter Pulse Oximetry (%) 98 Oxygen Delivery Method Room Air Intake Visit Reasons: PE Intake Note: Pt is here today for PE. Pt states that she was on antibiotic 3 times for H pylori. Pt states that she finished her 3rd course of antibiotic a week ago and she has been having white spots in her throat and vaginal itching. Allergies Penicillins Adverse Reaction (Unknown, Verified 08/08/23 13:59) childhood allergy- passed out Medication List - Last Reconciled 08/08/23 by Gosia Mcdaniel MD estradiol 1 patch transdermal 2XW pantoprazole 40 mg PO DAILY sucralfate 10 mL PO BEDTIME valacyclovir (Valtrex) 1,000 mg PO DAILY Tobacco use date assessed: 08/08/23 Dental Screening Dental Screen Date: 08/08/23 Did you have a dental visit in the last 12 months?: Yes Did you have a dental problem in the last 6 months where you did not have access to dental care?: No Was dental information given to patient?: Patient has dentist HPI PE HPI Details Patient presents for physical. She underwent total hysterectomy for uterine fibroids and had endoscopy consistent with duodenal ulcer and positive for H pylori infection. Patient completed course of antibiotics and has a follow-up with GI. Patient reports vaginal itching and white vaginal discharge. [facility] Medical History Diverticulosis Tubular adenoma PONV (postoperative nausea and vomiting) Gastric ulcer Arthritis Multinodular thyroid Hx of ovarian cyst Surgical History (Updated 08/08/23 @ 14:13 by Gosia Mcdaniel MD) Hx of colonoscopy History of esophagogastroduodenoscopy (EGD) S/P removal of right ovary Hx of section Family History Father Substance use disorder Mother Hypothyroidism Maternal Grandmother Cervical cancer Social History Household Members Other:: works as hairdresser, dance for exercise Housing: House Alcohol intake: current Alcohol intake frequency: a few times a week Patient Tobacco Use Status: Current someday Tobacco user Tobacco use type: Cigarette Cigarettes Per Day: 4 e-Cigarette/Vaping Use: Never Used Current occupational status: employed Cognitive needs: No Hearing needs: No Vision needs: Yes Questionnaire PHQ-9 Over the last 2 weeks, how often have you been bothered by any of the following problems? 1. Little interest or pleasure in doing things: not at all 2. Feeling down, depressed, or hopeless: not at all 3. Trouble falling or staying asleep, or sleeping too much: not at all 4. Feeling tired or having little energy: not at all 5. Poor appetite or overeating: not at all 6. Feeling bad about yourself - or that you are a failure or have let yourself or your family down: not at all 7. Trouble concentrating on things, such as reading the newspaper or watching television: not at all 8. Moving or speaking so slowly that other people could have noticed. Or the opposite - being so fidgety or restless that you have been moving around a lot more than usual: not at all 9. Thoughts that you would be better off or of hurting yourself in some way: not at all Total score: 0 Depression Screening Interpretation: Negative Source: Developed by Drs. Davide Sadler, Kate Hays, Krishan Garcia and colleagues, with an educational lizzette from [employer]. Thrive Questionnaire Date Thrive assessed: 08/08/23 I am a: Patient What is your living situation today?: I have a steady place to live Within the past 12 months, did the food you bought not last and you didn't have the money to get more?: Never true Within the past 12 months, did you worry whether your food would run out before you got money to buy more?: Never true Do you have trouble paying for medicines?: No Do you have trouble getting transportation to medical appointments?: No Do you have trouble paying your heating and electricity bill?: No Do you have trouble taking care of your child, family member or friend?: No Do you have trouble with day-to-day activities such as bathing, preparing meals, shopping, managing finances, etc.?: No Are you currently unemployed and looking for a job?: No Are you interested in more education?: No Please select the resources that you would like help with: None Currently or been in a relationship where the following occur: no concerns reported AN-7 AMB Questionnaire AN-7 Date AN - 7 assessed: 08/08/23 Feeling nervous, anxious, or on edge: 0 = Not at all Not being able to stop or control worryin = Not at all Worrying too much about different things: 0 = Not at all Trouble relaxin = Not at all Being so restless that it is hard to sit still: 0 = Not at all Becoming easily annoyed or irritable: 0 = Not at all Feeling afraid as if something awful might happen: 0 = Not at all Total AN-7 score (0-4 normal; 5-9 mild; 10-14 moderate; 15-21 severe): 0 Source: Developed by Drs. Davide Sadler, Kate Hays, Krishan Garcia and colleagues, with an educational lizzette from [employer]. Review of Systems Const All systems reviewed & are unremarkable except as noted in HPI and below Reports no additional complaints Eyes Reports no additional complaints ENT Reports no additional complaints Card Reports no additional complaints Resp Reports no additional complaints GI Reports no additional complaints Reports no additional complaints Physical exam (Primary Care) Vital Signs: Last Vital Signs Pulse 88 08/08/23 13:51 BP 104/66 08/08/23 13:51 Pulse Ox 98 08/08/23 13:51 Oxygen Delivery Method Room Air 08/08/23 13:51 BMI result Body Mass Index 25.8 Tobacco/Smoking Status: Tobacco use Status Tobacco use date assessed 08/08/23 08/08/23 14:03 Patient Tobacco Use Status Current someday Tobacco 08/08/23 13:52 Tobacco use type Cigarette 08/08/23 13:52 e-Cigarette/Vaping Use Never Used 08/08/23 13:52 PHQ-9: PHQ-9 Score PHQ-9: Total score 0 08/08/23 14:03 Depression Screening Interpretation: Negative Thrive Assessment: Date of Thrive Assessment Date Thrive assessed 08/08/23 08/08/23 14:03 Currently or been in a relationship where the following occur: no concerns reported Const General: no acute distress HENMT Ears: hearing grossly normal bilaterally Throat: Yes posterior oropharynx normal Eyes General: appearance normal, both eyes and all related structures Neck Neck: Yes no lymphadenopathy and Yes supple Resp Effort & Inspection: normal respiratory effort Auscultation: clear to auscultation bilaterally Cardio Rhythm: regular rhythm Heart sounds: S1 normal heart sound present and S2 normal heart sound present GI Inspection: Yes normal to inspection Palpation (GI): Soft to palpation Percussion: Yes normal to percussion Auscultation: normal bowel sounds Assessment and Plan Assessment & Plan (1) S/P VICTOR M-BSO: Comment: 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 she is up-to-date with the mammogram (3) Thyroid nodule: Comment: S/P BX for thyroid nodules >4 years, Code(s): E04.1 - Nontoxic single thyroid nodule Plan: Check TSH and follow-up with endocrinology (4) Helicobacter pylori gastritis: Code(s): K29.70 - Gastritis, unspecified, without bleeding; B96.81 - Helicobacter pylori [H. pylori] as the cause of diseases classified elsewhere Plan: Status post treatment 3rd time. Follow-up with GI Orders: Orders TSH reflex Free T4 Today E04.1 - Nontoxic single thyroid nodule, Z00.00 - Encounter for general adult medical examination without abnormal findings Lipid Panel Today E04.1 - Nontoxic single thyroid nodule, Z00.00 - Encounter for general adult medical examination without abnormal findings Medications: New fluconazole 150 mg PO Q3D 2 tabs 0RF Discontinued pantoprazole take one tablet half an hour before breakfast Discontinued Reason: Doctor's Order 40 mg PO DAILY 90 tabs 2RF K21.9 - Gastro-esophageal reflux disease without esophagitis Coding Level of Care Code Est Pt Prev Care 40-64y(25987) Diagnoses S/P VICTOR M-BSO Z90.710; Z90.722; Z90.79 Annual physical exam Z00.00 Thyroid nodule E04.1 Helicobacter pylori gastritis K29.70; B96.81
== END 2023-08-08 14:24 | disposition home or self-care (01) ==
PROVIDERS: Visit Provider Internal Medicine
DX: Z00.00 Encounter for general adult medical examination without abnormal findings (principal); Z90.710 Acquired absence of both cervix and uterus; E04.1 Nontoxic single thyroid nodule; Z90.722 Acquired absence of ovaries, bilateral; Z90.79 Acquired absence of other genital organ(s); K29.70 Gastritis, unspecified, without bleeding; B96.81 Helicobacter pylori [H. pylori] as the cause of diseases classified elsewhere
CPT/HCPCS: 99396

== ENCOUNTER 2023-08-14 15:58 | Outpatient (AMB) | payer OTHER, SELFPAY ==
[2023-08-14 16:03] VITALS: BP 121/72; PULSE 72; BMI 25.9
--- NOTE | 2023-08-14 16:03 | MHC.OFFVIS ---
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 Discussed with patient avoiding dietary triggers in late night snacking. Staying upright for minimal 3 hours after meals discussed with patient. Patient was encouraged to decrease the amount of coffee did she is drinking and avoid drinking soda. History of H pylori in the past, will check for H pylori again and treat empirically if positive. Postprandial abdominal bloating Postprandial abdominal bloating. Discussed with patient high fiber up diet and eliminating her bowels completely IBS (irritable bowel syndrome) Postprandial abdominal bloating occasionally loose stools and constipation. Patient will try to move her bowels better. She was encouraged to drink plenty fluids and increase activity to promote better bowel motility. Will FODMAP diet discussed with patient. List of food recommended as well as list of food to avoid given to patient. Will check for pancreatic insufficiency, lipase, liver enzymes vitamin B12, folate, vitamin-D levels. I will see her in 5 weeks, sooner on as needed basis. Patient is agreeable to this plan and verbalizes understanding of instructions. She was given the opportunity to ask questions and all questions answered. TODAY'S VISIT Patient is here today for follow-up. Patient was seen in May and was diagnosed again with H pylori. Treated with quadruple therapy again. Patient reports that since treated she has been feeling better. Patient is not taking any PPI or H2 marybeth. Patient reports to be feeling better. Tolerates food better. Continues with certain restrictions due to dyspepsia otherwise patient states that she is feeling well. Denies any melena, hematochezia, unintentional weight loss or ribbon like stools. Patient denies any GI concerning symptoms. 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, dance for exercise Housing: House Alcohol intake: current Alcohol intake frequency: a few times a week Patient Tobacco Use Status: Current someday Tobacco user Tobacco use type: Cigarette Cigarettes Per Day: 4 e-Cigarette/Vaping Use: Never Used Current occupational status: employed Cognitive needs: No Hearing needs: No Vision needs: Yes Review of Systems Const Denies weight gain and Denies weight loss ENT Reports no additional complaints, Denies dysphagia and Denies odynophagia Card Reports no additional complaints Resp Reports no additional complaints GI Denies abdominal pain, Denies belching, Denies melena, Denies bloating, Denies change in bowel habits, Denies dysphagia, Denies excessive flatus, Denies dyspepsia, Denies heartburn, Denies diarrhea, Denies loose stools, Denies nausea, Denies odynophagia and Denies vomiting Reports no additional complaints Musc Reports no additional complaints Neuro Reports no additional complaints Psych Reports no additional complaints Endo Reports no additional complaints Physical Exam Vital Signs: Last Vital Signs Pulse 72 08/14/23 16:03 BP 121/72 08/14/23 16:03 BMI result Body Mass Index 25.9 Const General: healthy appearing, no acute distress and well developed Nutritional Appearance: well nourished Orientation/consciousness: patient oriented x3 HEENT Head: Yes normal to inspection, Yes normocephalic and Yes atraumatic Face and sinus: Yes normal facial exam Mouth: Normal oral and palatal mucosa present Throat: Yes posterior oropharynx normal, Yes tonsils normal and Yes uvula midline Eyes General: appearance normal, both eyes and all related structures Neck Neck: Yes normal visual inspection, Yes full ROM and Yes trachea midline Thyroid: Thyroid normal Resp Effort & Inspection: normal respiratory effort, able to speak in complete sentences, no tracheal deviation and symmetric chest movement Auscultation: clear to auscultation bilaterally Cardio Rate: regular rate Heart sounds: S1 normal heart sound present and S2 normal heart sound present GI Inspection: Yes normal to inspection and No distended Palpation (GI): Soft to palpation, not firm, nontender and No hepatosplenomegaly present Auscultation: normal bowel sounds General: Yes no CVA tenderness Back/Spine/Pelvis Back: no CVA tenderness Skin General skin exam: elasticity normal, turgor normal and dry skin Neuro General: patient oriented x3 Psych Appearance: grossly normal Mental Status: mental status grossly normal Speech and movement: Normal speech and movement present Assessment & Plan Assessment & Plan (1) Helicobacter pylori (H. pylori): Code(s): A04.8 - Other specified bacterial intestinal infections Plan: Patient completed full treatment for H pylori. Will retest patient. She is not on any PPI on or H2 marybeth. (2) GERD (gastroesophageal reflux disease): Code(s): K21.9 - Gastro-esophageal reflux disease without esophagitis Qualifiers: Esophagitis presence: without esophagitis Qualified Code(s): K21.9 - Gastro-esophageal reflux disease without esophagitis Plan: Patient will be retested for H pylori. Will treat empirically if positive. Patient currently has no epigastric pain, no acid reflux, no dyspepsia, dysphagia or odynophagia. Patient was encouraged to avoid dietary triggers in late night snacking. Staying upright for minimum 3 hours after meals discussed with patient. I will see patient in 2 months, sooner on as needed basis. Patient is agreeable to this plan and verbalizes understanding of instructions. She was given the opportunity to ask questions and all questions answered. Thank you for allowing me to participate in her care Orders: Orders H Pylori Breath Test 08/17/23 B96.81 - Helicobacter pylori [H. pylori] as the cause of diseases classified elsewhere, K29.70 - Gastritis, unspecified, without bleeding Coding Level of Care Code Est Pt Level 3 (65510) Diagnoses Helicobacter pylori (H. pylori) A04.8 Gastroesophageal reflux disease without esophagitis K21.9 Esophagitis presence: without esophagitis Time Spent (min) 30 Comment 20 minutes spent with patient and additional 10 minutes spent reviewing her records
== END 2023-08-14 16:48 | disposition home or self-care (01) ==
PROVIDERS: PCP Internal Medicine; Visit Provider Nurse Practitioner Family
DX: A04.8 Other specified bacterial intestinal infections (principal); K21.9 Gastro-esophageal reflux disease without esophagitis
CPT/HCPCS: 99213

== ENCOUNTER 2023-08-14 15:58 | Outpatient (REF) | payer OTHER, SELFPAY ==
[2023-08-18 16:39] LABS: H Pylori Breath Test Negative (Negative)
== END 2023-08-14 15:59 | disposition home or self-care (01) ==
LOC: HO.LAB 15:58
PROVIDERS: PCP Internal Medicine; Visit Provider Nurse Practitioner Family
DX: K29.70 Gastritis, unspecified, without bleeding (principal); K21.9 Gastro-esophageal reflux disease without esophagitis; B96.81 Helicobacter pylori [H. pylori] as the cause of diseases classified elsewhere
CPT/HCPCS: 83013; 99212

== ENCOUNTER 2023-08-21 12:47 | Outpatient (REF) | payer OTHER, SELFPAY ==
[2023-08-21 16:34] LABS: Cholesterol 238 mg/dL (<200); HDL Cholesterol 82 mg/dL (>40); LDL Cholesterol Calculated 138 mg/dL (<100); Triglycerides 91 mg/dL (<150)
== END 2023-08-21 12:48 | disposition home or self-care (01) ==
LOC: HO.HMGCLDS 12:47
PROVIDERS: PCP Internal Medicine; Visit Provider Internal Medicine
DX: Z00.00 Encounter for general adult medical examination without abnormal findings (principal); E04.1 Nontoxic single thyroid nodule
CPT/HCPCS: 36415; 80061; 84443

== ENCOUNTER 2023-12-01 14:20 | Outpatient (AMB) | payer OTHER, SELFPAY ==
--- NOTE | 2023-12-01 14:30 | A.OFFVIS_ITS ---
Intake Vital Signs 12/01/23 14:32 Height 5 ft 2 in Weight 141 lb BMI 25.8 BP 131/69 Blood Pressure Location Lt brachial Position Sitting Pulse 77 Intake Visit Reasons: 2 month follow up Intake Note: Patient 2 month follow up for GERD. Patient cc: RLQ pain radiating to her back. Denies any other GI issues. 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 pylori) Patient completed full treatment for H pylori. Will retest patient. She is not on any PPI on or H2 marybeth. GERD (gastroesophageal reflux disease) Patient will be retested for H pylori. Will treat empirically if positive. Patient currently has no epigastric pain, no acid reflux, no dyspepsia, dysphagia or odynophagia. Patient was encouraged to avoid dietary triggers in late night snacking. Staying upright for minimum 3 hours after meals discussed with patient. I will see patient in 2 months, sooner on as needed basis. Patient is agreeable to this plan and verbalizes understanding of instructions. She was given the opportunity to ask questions and all questions answered. ? Thank you for allowing me to participate in her care Plan Orders Orders H Pylori Breath Test 08/17/23 B96.81, K29.70 TODAY'S VISIT: Patient is here today for follow-up. Patient reports that since last time I have seen her she has been doing fairly well. However patient does report right upper quadrant discomfort. Patient reports that sometimes the pain is there postprandially and sometimes couple hours after she eats. Patient reports that she feels the pain when she touches her right upper quadrant. Patient denies any nausea or vomiting. Patient reports that she's no longer taking PPI. Treated in the past for H pylori with eradication. Patient admits to eating more citric food, spicy and food that contains vinegar. Patient denies any naus ea or vomiting. Denies any fever or chills. 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, dance for exercise Housing: House Alcohol intake: current Alcohol intake frequency: a few times a week Patient Tobacco Use Status: Current someday Tobacco user Tobacco use type: Cigarette Cigarettes Per Day: 4 e-Cigarette/Vaping Use: Never Used Current occupational status: employed Cognitive needs: No Hearing needs: No Vision needs: Yes Review of Systems Const Denies weight gain and Denies weight loss ENT Reports no additional complaints, Denies dysphagia and Denies odynophagia Card Reports no additional complaints Resp Reports no additional complaints GI Reports abdominal pain (RUQ), Denies belching, Denies melena, Denies bloating, Denies change in bowel habits, Denies dysphagia, Denies excessive flatus, Denies dyspepsia, Denies heartburn, Denies diarrhea, Denies loose stools, Denies nausea, Denies odynophagia and Denies vomiting Musc Reports no additional complaints Neuro Reports no additional complaints Psych Reports no additional complaints Endo Reports no additional complaints Physical Exam Vital Signs: Last Vital Signs Pulse 77 12/01/23 14:32 BP 131/69 12/01/23 14:32 BMI result Body Mass Index 25.8 Const General: healthy appearing, no acute distress and well developed Nutritional Appearance: well nourished Orientation/consciousness: patient oriented x3 HEENT Head: Yes normal to inspection, Yes normocephalic and Yes atraumatic Face and sinus: Yes normal facial exam Mouth: Normal oral and palatal mucosa present Throat: Yes posterior oropharynx normal, Yes tonsils normal and Yes uvula midline Eyes General: appearance normal, both eyes and all related structures Neck Neck: Yes normal visual inspection, Yes full ROM and Yes trachea midline Thyroid: Thyroid normal Resp Effort & Inspection: normal respiratory effort, able to speak in complete sentences, no tracheal deviation and symmetric chest movement Auscultation: clear to auscultation bilaterally Cardio Rate: regular rate GI Inspection: Yes normal to inspection and No distended Palpation (GI): Soft to palpation, not firm, nontender and No hepatosplenomegaly present Auscultation: normal bowel sounds General: Yes no CVA tenderness Back/Spine/Pelvis Back: no CVA tenderness Skin General skin exam: elasticity normal, turgor normal and dry skin Neuro General: patient oriented x3 Psych Appearance: grossly normal Mental Status: mental status grossly normal Affect: normal affect Assessment & Plan Assessment & Plan (1) RUQ abdominal pain: Code(s): R10.11 - Right upper quadrant pain (2) Diverticulosis: Code(s): K57.90 - Diverticulosis of intestine, part unspecified, without perforation or abscess without bleeding Plan Patient reports right upper quadrant pain, will send her for ultrasound. Berna ent was encouraged to avoid dietary triggers. Avoid food high in fat or fried. Low FODMAP diet discussed with patient as well. Patient will return to the office in 3 months, sooner on as needed basis. Patient is agreeable to this plan and verbalizes understanding of instructions. She was given the opportunity to ask questions and all questions answered. Thank you for allowing me to participate in her care Orders: Orders US abdomen complete 12/01/23 R10.9 - Unspecified abdominal pain, R10.11 - Right upper quadrant pain Coding Level of Care Code Est Pt Level 3 (37306) Diagnoses RUQ abdominal pain R10.11 Diverticulosis K57.90 Time Spent (min) 30 Comment 20 minutes spent with patient and additional 10 minutes spent reviewing her records
[2023-12-01 14:32] VITALS: BP 131/69; PULSE 77; BMI 25.8
== END 2023-12-01 15:48 | disposition home or self-care (01) ==
PROVIDERS: PCP Internal Medicine; Visit Provider Nurse Practitioner Family
DX: R10.11 Right upper quadrant pain (principal); K57.90 Diverticulosis of intestine, part unspecified, without perforation or abscess without bleeding
CPT/HCPCS: 99213

== ENCOUNTER → 2023-12-01 14:20 | Outpatient (BNVA) | payer OTHER, SELFPAY | PROVIDERS: PCP Internal Medicine; Visit Provider Nurse Practitioner Family | DX: K57.90 Diverticulosis of intestine, part unspecified, without perforation or abscess without bleeding (principal); R10.11 Right upper quadrant pain | CPT/HCPCS: 99212 ==

== ENCOUNTER 2023-12-14 10:29 | Outpatient (REF) | payer OTHER, SELFPAY ==
--- NOTE | ~2023-12-14 | US_ITS ---
EXAMINATION: US ABDOMEN COMPLETE CLINICAL INFORMATION: Unspecified abdominal pain Right upper quadrant pain. COMPARISON: None available. TECHNIQUE: Real-time imaging of the abdominal viscera. FINDINGS: PANCREAS: Normal. ABDOMINAL AORTA: The proximal, mid, and distal segments are normal in caliber. INFERIOR VENA CAVA: Visualized portions are normal. LIVER: The liver is normal in size. The liver contour is normal. Parenchymal echogenicity is normal. 0.8 x 0.5 x 0.5 cm simple cyst is seen in the left lobe, 0.4 x 0.3 x 0.5 cm cyst with rim calcification is seen in the left lobe and 1.1 x 0.7 x 0.7 cm simple cyst is seen in the right lobe. There is no intrahepatic biliary duct dilatation seen. GALLBLADDER: Normal. The gallbladder is physiologically distended without evidence of stones, sludge, polyps, wall thickening or pericholecystic fluid. The patient is mildly tender when scanning over the gallbladder. COMMON BILE DUCT: Normal in caliber measuring 0.4 cm in diameter. RIGHT KIDNEY: 0.3 x 0.3 x 0.2 cm nonobstructing calculus is seen in the mid kidney. No hydronephrosis. No focal parenchymal lesions. The kidney measures 10.1 cm in maximum dimension. LEFT KIDNEY: 0.2 x 0.2 cm nodule in calculus is seen in the lower pole. No hydronephrosis. No focal parenchymal lesions. The kidney measures 9.9 cm in maximum dimension. SPLEEN: Normal. The spleen measures 9.2 cm in maximum dimension. FREE FLUID: None. US/US abdomen complete IMPRESSION: 1. Several small hepatic cysts. 2. Bilateral nonobstructing renal calculi.
== END 2023-12-14 10:30 | disposition home or self-care (01) ==
LOC: HO.HMGCX 10:29
PROVIDERS: PCP Internal Medicine; Visit Provider Nurse Practitioner Family
DX: R10.11 Right upper quadrant pain (principal)
CPT/HCPCS: 76700

== ENCOUNTER → 2024-01-12 08:40 | Outpatient (REF) | payer OTHER, SELFPAY ==
--- NOTE | ~2024-01-12 | NM_ITS ---
EXAMINATION: BILIARY TRACT IMAGING STUDY WITH CCK CLINICAL INFORMATION: Right upper quadrant pain.. COMPARISON: No previous biliary scan is available for comparison. Abdominal ultrasound dated 12/14/2013 is available for comparison.. TECHNIQUE: Serial gamma scintillation camera images were obtained over the abdomen for a total observation period of 90 minutes following the intravenous administration of 5 mCi Tc-99m Mebrofenin. FINDINGS: There is good concentration of activity in the liver by 5 minutes post injection. Biliary activity is visualized by 10 minutes. The gallbladder is well visualized by 15 minutes. Small bowel is well visualized by 25 minutes. At 60 minutes post radiopharmaceutical injection, a 30-minute infusion of 1.3 micrograms Sincalide was then begun and an additional 40 minutes of images were obtained. There is good emptying of the gallbladder. By the end of the study there is good clearance of activity from the liver and visualization of diffuse small bowel activity. The calculated gallbladder ejection fraction is 38% (normal gallbladder ejection fraction is greater than 35%). NM/NM hepatobiliary w pharm IMPRESSION: Visualization of the gallbladder is evidence of a patent cystic duct and strong evidence against the diagnosis of acute cholecystitis. The common bile duct is patent. Gallbladder emptying and ejection fraction are normal. Liver function appears normal.
== END ==
LOC: HO.NUCMED 08:40
PROVIDERS: PCP Internal Medicine; Visit Provider Nurse Practitioner Family
DX: R10.11 Right upper quadrant pain (principal); R10.811 Right upper quadrant abdominal tenderness
CPT/HCPCS: 78227; A9537; J2805

== ENCOUNTER 2024-03-07 10:05 | Outpatient (AMB) | payer OTHER, SELFPAY ==
--- NOTE | 2024-03-07 10:07 | MHC.OFFVIS ---
Vital Signs 03/07/24 10:09 Height 5 ft 2 in Weight 147 lb 4.301 oz BMI 26.9 BP 128/82 Blood Pressure Location Lt brachial Position Sitting Pulse 84 Intake Visit Reasons: 3 mos f/u Intake Note: Lillie returns to in office follow up of US. CC: Patient reports doing well, states RLQ abdominal pain sometimes. Denies any new GI concerns today. 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 Patient was encouraged to avoid dietary triggers. Avoid food high in fat or fried. Low FODMAP diet discussed with patient as well. Patient will return to the office in 3 months, sooner on as needed basis. Patient is agreeable to this plan and verbalizes understanding of instructions. She was given the opportunity to ask questions and all questions answered. ? Thank you for allowing me to participate in her care Orders Orders US abdomen complete 12/01/23 R10.9, R10.11 TODAY'S VISIT Patient is here today for follow-up and to discuss abdominal ultrasound and HIDA scan results. Patient had abdominal ultrasound in November and continues with right upper quadrant pain. Patient had tenderness during the exam in the right upper quadrant as mentioned in report by radiologic technician. Patient was then sent for HIDA scan which showed low normal EF at 38% (normal EF 35-85%). After the exam patient reports that she has been feeling well and her right upper quadrant pain went away. Patient reports that occasionally she might have right lower quadrant cramping, however is not related to food. Patient denies any dyspepsia, dysphagia or odynophagia. Denies any melena, hematochezia, unintentional weight loss or ribbon like stools. Patient reports to be feeling well today, denies any GI concerning symptoms. Patient no longer is taking any PPI. [facility] Medical History Diverticulosis Tubular adenoma PONV (postoperative nausea and vomiting) Gastric ulcer Arthritis Multinodular thyroid Hx of ovarian cyst Surgical History Hx of colonoscopy History of esophagogastroduodenoscopy (EGD) S/P removal of right ovary Hx of section Family History Father Substance use disorder Mother Hypothyroidism Maternal Grandmother Cervical cancer Social History Household Members Other:: works as [employer], dance for exercise Housing: House Alcohol intake: current Alcohol intake frequency: a few times a week Patient Tobacco Use Status: Current someday Tobacco user Tobacco use type: Cigarette Cigarettes Per Day: 4 e-Cigarette/Vaping Use: Never Used Current occupational status: employed Cognitive needs: No Hearing needs: No Vision needs: Yes Review of Systems Const Denies weight gain and Denies weight loss ENT Reports no additional complaints, Denies dysphagia and Denies odynophagia Card Reports no additional complaints Resp Reports no additional complaints GI Denies abdominal pain, Denies belching, Denies melena, Denies bloating, Denies change in bowel habits, Denies dysphagia, Denies excessive flatus, Denies dyspepsia, Denies heartburn, Denies diarrhea, Denies loose stools, Denies nausea, Denies odynophagia and Denies vomiting Reports no additional complaints Musc Reports no additional complaints Neuro Reports no additional complaints Psych Reports no additional complaints Endo Reports no additional complaints Physical Exam Vital Signs: Last Vital Signs Pulse 84 03/07/24 10:09 BP 128/82 03/07/24 10:09 BMI result Body Mass Index 26.9 Const General: healthy appearing, no acute distress and well developed Nutritional Appearance: well nourished Orientation/consciousness: patient oriented x3 Resp Effort & Inspection: normal respiratory effort, able to speak in complete sentences, no tracheal deviation and symmetric chest movement Auscultation: clear to auscultation bilaterally Cardio Rate: regular rate GI Inspection: Yes normal to inspection and No distended Palpation (GI): Soft to palpation, not firm, nontender and No hepatosplenomegaly present Auscultation: normal bowel sounds General: Yes no CVA tenderness Back/Spine/Pelvis Back: no CVA tenderness Skin General skin exam: elasticity normal, turgor normal and dry skin Neuro General: patient oriented x3 Psych Appearance: grossly normal Mental Status: mental status grossly normal Results Reviewed Results Reviewed: ABDOMINAL ULTRASOUND 12/14/2023 FINDINGS: PANCREAS: Normal. ABDOMINAL AORTA: The proximal, mid, and distal segments are normal in caliber. INFERIOR VENA CAVA: Visualized portions are normal. LIVER: The liver is normal in size. The liver contour is normal. Parenchymal echogenicity is normal. 0.8 x 0.5 x 0.5 cm simple cyst is seen in the left lobe, 0.4 x 0.3 x 0.5 cm cyst with rim calcification is seen in the left lobe and 1.1 x 0.7 x 0.7 cm simple cyst is seen in the right lobe. There is no intrahepatic biliary duct dilatation seen. GALLBLADDER: Normal. The gallbladder is physiologically distended without evidence of stones, sludge, polyps, wall thickening or pericholecystic fluid. The patient is mildly tender when scanning over the gallbladder. COMMON BILE DUCT: Normal in caliber measuring 0.4 cm in diameter. RIGHT KIDNEY: 0.3 x 0.3 x 0.2 cm nonobstructing calculus is seen in the mid kidney. No hydronephrosis. No focal parenchymal lesions. The kidney measures 10.1 cm in maximum dimension. LEFT KIDNEY: 0.2 x 0.2 cm nodule in calculus is seen in the lower pole. No hydronephrosis. No focal parenchymal lesions. The kidney measures 9.9 cm in maximum dimension. SPLEEN: Normal. The spleen measures 9.2 cm in maximum dimension. FREE FLUID: None. US/US abdomen complete IMPRESSION: 1. Several small hepatic cysts. 2. Bilateral nonobstructing renal calculi. HIDA SCAN 01/12/2024 FINDINGS: There is good concentration of activity in the liver by 5 minutes post injection. Biliary activity is visualized by 10 minutes. The gallbladder is well visualized by 15 minutes. Small bowel is well visualized by 25 minutes. At 60 minutes post radiopharmaceutical injection, a 30-minute infusion of 1.3 micrograms Sincalide was then begun and an additional 40 minutes of images were obtained. There is good emptying of the gallbladder. By the end of the study there is good clearance of activity from the liver and visualization of diffuse small bowel activity. The calculated gallbladder ejection fraction is 38% (normal gallbladder ejection fraction is greater than 35%). NM/NM hepatobiliary w pharm IMPRESSION: Visualization of the gallbladder is evidence of a patent cystic duct and strong evidence against the diagnosis of acute cholecystitis. The common bile duct is patent. Gallbladder emptying and ejection fraction are normal. Liver function appears normal. Assessment & Plan Assessment & Plan (1) Diverticulosis: Code(s): K57.90 - Diverticulosis of intestine, part unspecified, without perforation or abscess without bleeding Category: Medical (2) RUQ abdominal pain: Code(s): R10.11 - Right upper quadrant pain Plan Continue avoiding dietary triggers and late night snacking. EF 38%. Patient will call our office if she will have right upper quadrant pain postprandially. Patient will follow-up in the office in 1 year, sooner on as needed basis. Patient is agreeable to this plan and verbalizes understanding of instructions. She was given the opportunity to ask questions and all questions answered. Thank you for allowing me to participate in her care
[2024-03-07 10:09] VITALS: BP 128/82; PULSE 84; BMI 26.9
== END 2024-03-07 10:43 | disposition home or self-care (01) ==
PROVIDERS: PCP Internal Medicine; Visit Provider Nurse Practitioner Family
DX: K57.90 Diverticulosis of intestine, part unspecified, without perforation or abscess without bleeding (principal); R10.11 Right upper quadrant pain
CPT/HCPCS: 99214

== ENCOUNTER → 2024-03-07 10:05 | Outpatient (BNVA) | payer OTHER, SELFPAY | PROVIDERS: PCP Internal Medicine; Visit Provider Nurse Practitioner Family | DX: K57.90 Diverticulosis of intestine, part unspecified, without perforation or abscess without bleeding (principal); R10.11 Right upper quadrant pain | CPT/HCPCS: 99212 ==

== ENCOUNTER 2024-08-16 12:51 | Outpatient (AMB) | payer OTHER, SELFPAY ==
[2024-08-16 13:30] VITALS: BP 126/80; PULSE 65; O2SAT 99; BMI 26.5
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
== END 2024-08-16 14:34 | disposition home or self-care (01) ==
PROVIDERS: PCP Internal Medicine; Visit Provider Internal Medicine
DX: E04.1 Nontoxic single thyroid nodule (principal); D64.9 Anemia, unspecified; E55.9 Vitamin D deficiency, unspecified; Z00.00 Encounter for general adult medical examination without abnormal findings; M54.50 Low back pain, unspecified

== ENCOUNTER → 2024-08-16 12:51 | Outpatient (BNVA) | payer OTHER, SELFPAY | PROVIDERS: PCP Internal Medicine; Visit Provider Internal Medicine ==

== ENCOUNTER 2024-08-16 14:16 | Outpatient (REF) | payer OTHER, SELFPAY ==
[2024-08-16 16:12] LABS: MANUAL DIFF FLAG NO
[2024-08-16 16:17] LABS: Appearance Urine Clear; Color Urine Yellow; Glucose Urine UA Negative (Negative); Leukocyte Esterase Urine Negative (Negative); Nitrite Urine Negative (Negative); PH 6.5 (5.0-9.0); Urine Blood Negative (Negative); Urine Ketones Negative (Negative); Urine Protein Negative (Neg-Trace)
[2024-08-16 16:18] LABS: Basophils Percent Auto 0.8 % (0-2); Eosinophils Absolute Auto 0.1 X10*3/uL (0.0-0.4); Eosinophils Percent Auto 2.1 % (0-4); Hematocrit 42.4 % (37.0-47.0); Hemoglobin 14.1 g/dl (12.0-16.0); Imm Gran Abs Auto 0.05 X10*3/uL (0.00-0.03); Lymphocytes Absolute Auto 2.1 X10*3/uL (1.2-4.9); Lymphocytes Percent Auto 40.6 % (20-40); Mean Corpuscular HGB Conc 33.3 g/dl (31.0-35.0); Mean Corpuscular Hemoglobin 30.8 pg (27.0-33.0); Mean Corpuscular Volume 92.6 fL (80.0-98.0); Mean Platelet Volume 10.2 fL (9.4-12.3); Monocytes Absolute Auto 0.3 X10*3/uL (0.1-1.2); Monocytes Percent Auto 6.3 % (2-11); Neutrophils Absolute Auto 2.6 x10*3/uL (2.0-8.3); Neutrophils Percent Auto 49.2 % (45-73); Platelet Count 231 X10*3/uL (160-400); Red Blood Count 4.58 X10*6/uL (4.20-5.50); Red Cell Distribution Width 12.3 % (11.0-16.0); White Blood Count 5.2 X10*3/uL (4.8-10.8)
[2024-08-16 16:38] LABS: Bacteria Urine None Seen (None Seen); Hyaline Casts Urine 0-2 /LPF (0-2); RBC Urine 0-2 /HPF (0-2); WBC Urine 0-5 /HPF (0-5)
[2024-08-16 16:55] LABS: Alanine Aminotransferase 19 U/L (0-31); Albumin Level 4.6 g/dL (3.5-5.0); Alkaline Phosphatase 50 U/L (39-117); Anion Gap 12 (12-20); Aspartate Amino Transferase 22 U/L (5-31); Bilirubin Total 0.8 mg/dL (0.0-1.0); Blood Urea Nitrogen 13 mg/dL (9-16); Calcium 9.7 mg/dL (8.4-10.2); Carbon Dioxide 28 mmol/L (22-29); Chloride 104 mmol/L (96-108); Cholesterol 232 mg/dL (<200); Estimated Glomerular Filt Rate > 60; Glucose Fasting 91 mg/dL (60-99); HDL Cholesterol 69 mg/dL (>40); LDL Cholesterol Calculated 144 mg/dL (<100); Potassium 4.3 mmol/L (3.3-5.1); Sodium 140 mmol/L (135-145); Total Protein 7.5 g/dL (6.5-8.0); Triglycerides 95 mg/dL (<150)
== END 2024-08-16 14:17 | disposition home or self-care (01) ==
LOC: HO.HMGCLDS 14:16
PROVIDERS: PCP Internal Medicine; Visit Provider Internal Medicine
DX: Z00.01 Encounter for general adult medical examination with abnormal findings (principal); M54.50 Low back pain, unspecified; E04.1 Nontoxic single thyroid nodule; D64.9 Anemia, unspecified; E55.9 Vitamin D deficiency, unspecified
CPT/HCPCS: 36415; 80053; 80061; 81001; 84443; 85025; 96127; 99396

== ENCOUNTER 2024-09-05 14:28 | Outpatient (REF) | payer OTHER, SELFPAY | END 2024-09-05 14:29 | disposition home or self-care (01) | LOC: HO.HMGCX 14:28 | PROVIDERS: PCP Internal Medicine; Visit Provider Internal Medicine | DX: E04.1 Nontoxic single thyroid nodule (principal) | CPT/HCPCS: 76536 ==

== ENCOUNTER 2024-12-12 09:31 | Outpatient (AMB) | payer OTHER, SELFPAY ==
[2024-12-12 09:37] VITALS: BP 110/74; PULSE 86; BMI 28.2
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
== END 2024-12-12 10:21 | disposition home or self-care (01) ==
PROVIDERS: PCP Internal Medicine; Visit Provider Student in an Organized Health Care Education/Training Program
DX: E04.2 Nontoxic multinodular goiter (principal)
CPT/HCPCS: 99215

== ENCOUNTER → 2024-12-12 09:31 | Outpatient (BNVA) | payer OTHER, SELFPAY | PROVIDERS: PCP Internal Medicine; Visit Provider Student in an Organized Health Care Education/Training Program | DX: E04.2 Nontoxic multinodular goiter (principal) | CPT/HCPCS: 99212 ==

== ENCOUNTER 2025-02-26 09:29 | Outpatient (AMB) | payer OTHER, SELFPAY ==
--- NOTE | 2025-02-26 09:32 | A.OFFVIS_ITS ---
Vital Signs 02/26/25 09:37 Height 5 ft 2 in Weight 145 lb 11.609 oz BMI 26.7 BP 114/66 Blood Pressure Location Rt brachial Position Sitting Pulse 86 Pulse Source Pulse Oximeter Pulse Oximetry (%) 96 Oxygen Delivery Method Room Air Intake Visit Reasons: burnign pain bottom left of stomach Intake Note: ESTABLISHED PATIENT for requested follow up - abd pain mgmt. Chief Complaint; C/O LLQ pain, bloating and gas related concerns. Pt denies any signs or sx of fecal abn. No additional concerns at this time. Margin Analyst Required: No Allergies No Known Allergies Allergy (Verified 02/26/25 09:33) HPI HPI burnign pain bottom left of stomach: Details: LAST VISIT: Diverticulosis RUQ abdominal pain Plan Continue avoiding dietary triggers and late night snacking. EF 38%. Patient will call our office if she will have right upper quadrant pain postprandially. Patient will follow-up in the office in 1 year, sooner on as needed basis. Patient is agreeable to this plan and verbalizes understanding of instructions. She was given the opportunity to ask questions and all questions answered. ? TODAY'S VISIT Patient is here today for requested visit. Patient reports that over the weekend she had onions with beef tartar, some knots take with raspberry filling. Patient reports that she started the next day with severe left lower quadrant pain and gases. Patient was unable to have a bowel movement, however she took bowel stimulants and was able to have a bowel movement. Patient also took stool softener. Was drinking fluids only tried to stay away from eating anything else except for clear liquids. She continues to have pain in the left lower quadrant unable to even ambulate. Patient feels very tender to that side. Took ibuprofen yesterday and warm compresses with some relief, however she continues to have stabbing pain. Patient to believes that she was able to empty her bowels. Denies any fever or chills. Some nausea without vomiting. Patient denies any mucus in her stools or any blood PFSH Medical History Diverticulosis Tubular adenoma PONV (postoperative nausea and vomiting) Gastric ulcer Arthritis Multinodular thyroid Hx of ovarian cyst Surgical History Hx of colonoscopy History of esophagogastroduodenoscopy (EGD) S/P removal of right ovary Hx of section Family History Father Substance use disorder Mother Hypothyroidism Maternal Grandmother Cervical cancer Social History Household Members Other:: works as hairdresser, dance for exercise Housing: House Alcohol intake: current Alcohol intake frequency: a few times a week Patient Tobacco Use Status: Former Tobacco user Tobacco use type: Cigarette Cigarettes Per Day: 4 e-Cigarette/Vaping Use: Never Used Current occupational status: employed Cognitive needs: No Hearing needs: No Vision needs: Yes Physical Exam Vital Signs: BMI result Body Mass Index 26.7 Const General: healthy appearing, no acute distress and well developed Nutritional Appearance: well nourished Orientation/consciousness: patient oriented x3 Resp Effort & Inspection: normal respiratory effort, able to speak in complete sentences, no tracheal deviation and symmetric chest movement Auscultation: clear to auscultation bilaterally Cardio Rate: regular rate GI Inspection: Yes normal to inspection and No distended Palpation (GI): Soft to palpation, not firm, Tenderness to palpation present (GI) (LLQ) and No hepatosplenomegaly present Auscultation: normal bowel sounds General: Yes no CVA tenderness Back/Spine/Pelvis Back: no CVA tenderness Skin General skin exam: elasticity normal, turgor normal and dry skin Neuro General: patient oriented x3 Psych Appearance: grossly normal Mental Status: mental status grossly normal Assessment & Plan Assessment & Plan (1) Diverticulosis: Code(s): K57.90 - Diverticulosis of intestine, part unspecified, without perforation or abscess without bleeding Category: Medical (2) LLQ abdominal pain: Code(s): R10.32 - Left lower quadrant pain (3) Nausea: Code(s): R11.0 - Nausea Plan After examining patient patient has mild tenderness to the left lower quadrant. Suspecting diverticulitis. Will order stat CT scan and will start her on Cipro. Will give her dicyclomine. Patient does not have any fever or chills. She can continue clear liquid diet today and take stool softeners to help her empty her bowels completely. Patient will follow-up in 4 weeks to re-evaluate. Patient will go to ED if she will have fever, chills, unable to tolerate p.o.. Patient is agreeable to this plan and verbalizes understanding all instructions if she was given the opportunity to ask questions and all questions answered. Thank you for allowing me to participate in her care Orders: Orders CT abdomen pelvis w IV con Today K57.90 - Diverticulosis of intestine, part unspecified, without perforation or abscess without bleeding, R10.32 - Left lower quadrant pain, R10.9 - Unspecified abdominal pain, R11.0 - Nausea Blood Urea Nitrogen Today R10.11 - Right upper quadrant pain Creatinine Today R10.11 - Right upper quadrant pain Medications: New dicyclomine 10 mg PO TID 60 caps 2RF K58.9 - Irritable bowel syndrome, unspecified ciprofloxacin HCl 500 mg PO BID 14 tabs 0RF Coding Level of Care Code Est Pt Level 4 (29707) Diagnoses Diverticulosis K57.90 LLQ abdominal pain R10.32 Nausea R11.0 Time Spent (min) 40 Comment 25 minutes spent with patient and additional 15 minutes spent reviewing her records
[2025-02-26 09:37] VITALS: BP 114/66; PULSE 86; O2SAT 96; BMI 26.7
--- OUTSIDE RECORDS SUMMARY | 2025-02-26 10:38 | XMS_ITS | Clinical Summary ---
Author Organization [address] Address [address] [place] [address] Phone Care Team Providers Care Stemhole Borer And Topper Name Role Phone Gosia Mcdaniel MD Primary Care Provider [phone] Surgical History Surgery Date Site/Laterality Comments SECTION PROCEDURE: HISTORICAL DELIVERY; COMMENT: x 3 SALPINGOOPHORECTOMY 01/2019 Right PROCEDURE: [place] LAPAROSCOPY W/RMVL ADNEXAL STRUCTURES; COMMENT: Mucinous cystadenoma - benign Medical History Medical History Date Comments Hyperthyroidism, subclinical DX: Hyperthyroidism, subclinical Multinodular goiter DX:Multinodu lar goiter Exposure DX:Exposure; COM MENT: exposed to nuclear radiation accident in [place]; received medication at that time; now thyroid issues BRCA negative 09/2018 DX:BRCA negative Cyst of right ovary 09/21/2017 DX:Cyst of r ight ovary; COMMENT: Post RSO - Mucinous cystadenoma - benign Family History Medical History Relation Name Comments Diabetes Father liver disease, etoh; age 67 of head injury Other: cervical cancer Maternal Grandmother with cervical cancer and widespread mets Thyroid disease Mother Had hyst at 46yo with precancerous cells, no cancer Other: stomach cancer Other matern al great uncle; dx > age 70 Pneumonia Paternal Grandmother Other: lung cancer Uncle paternal uncle; smoker Breast cancer Neg Hx Colon cancer Neg Hx Ovarian cancer Neg Hx Pancreatic cancer Neg Hx Prostate cancer Neg Hx Relation Name Status Comments Father Maternal Grandfather Maternal Grandmother Mother Alive Other Paternal Grandfather Paternal Grandmother Uncle Social History Tobacco Use Types Packs/Day Years Used Date Smoking Tobacco: Some Days Cigarettes Last attempted to quit: 04/29/2015 Smokeless Tobacco: Never Alcohol Use Standard Drinks/Week Comments Yes 0 (1 standard drink = 0.6 oz pur e alcohol) Comments No Sex and Gender Information Value Date Recorded Sex Assigned at Not on file Legal Sex Female 5:35 PM EST Gender Identity Not on file Sexual Orientation Not on file Obstetrics History Para Term AB IAB SAB Ectopic Multiple Livin g Live Births 3 3 3 3 Date Outcome GA Total Labor Labor/2nd/3rd Weight Sex Type Anes PTL Danika A1 A5 Name Clin Term Term Term Last Filed Vital Signs Vital Sign Reading Time Taken Comments Blood Pressure 120/89 07/27/2023 11:48 AM EDT Pulse 103 07/27/2023 11:48 AM EDT Temperature - - Respiratory Rate - - Oxygen Saturation - - Inhaled Oxygen Concentration - - Weight 63.8 kg (140 lb 9.6 oz) 07/27/2023 11:48 AM EDT Height 157.5 cm (5' 2 ) 07/10/2023 3:08 PM EDT Body Mass Index 25.72 07/10/2023 3:08 PM EDT Plan of Treatment Health Maintenance Due Date Last Done Comments Hepatitis B Vaccines (1 of 3 - 19+ 3-dose series) 1990 Pneumococcal Vaccine: 50+ Years (1 of 2 - PCV) 1990 Pneumococcal Vaccine: Pediatrics (0 to 5 Years) and At-Risk Patients (6 to 64 Years) (1 of 2 - PCV) 1990 Cervical Cancer Screening: HPV 1992 Zoster Vaccines (1 of 2) 2021 Cholesterol Screening (Lipid Panel) 11/05/2022 Colorectal Cancer Screening: Colonoscopy 11/05/2022 Depression Screening 11/05/2022 HIV Screening 11/05/2022 Hepatitis C Screening 11/05/2022 Social Influencers of Health Screening 11/05/2022 COVID-19 Vaccine (3 - season) 2024 11/05/2021, 09/24/2021 Influenza Vaccine (#1) 2024 Breast Cancer Screening 11/18/2026 11/18/20 24, 11/15/2023, 11/07/2022, Additional history exists DTaP,Tdap,and Td Vaccines (2 - Td or Tdap) 11/12/2028 11/12/2018 HIB Vaccines Aged Out No longer eligi ble based on patient's age to complete this topic HPV Vaccines Aged Out No longer eligi ble based on patient's age to complete this topic Hepatitis A Vaccines Aged Out No long er eligible based on patient's age to complete this topic IPV Vaccines Aged Out No longer eligi ble based on patient's age to complete this topic MMR Vaccines Aged Out No longer eligi ble based on patient's age to complete this topic Meningococcal ACWY Vaccine Aged Out N o longer eligible based on patient's age to complete this topic Meningococcal B Vacine Aged Out No lo nger eligible based on patient's age to complete this topic RSV Immunization Patients Under 20 months Aged Out No longer eligible based on patient's age to complete this topic Varicella Vaccines Aged Out No longer eligible based on patient's age to complete this topic Procedures Procedure Name Priority Date/Time Associated Diagnosis Comments MG MAMMO DIGITAL SCREENING W CARLOS BILAT Routine 11/18/2024 8:28 AM EST Encounter for screening mammogram for breast cancer from Last 3 Months or Most Recently Relevant to Health Maintenance Results * MG Mammo Digital Screening w Carlos bilat (11/18/2024 8:28 AM EST) Anatomical Region Laterality Modality Breast Bilateral Mammography 11/19/2024 11:2 1 AM EST Impressions 11/19/2024 11:26 AM EST 1. No mammographic evidence of malignancy 2. Heterogeneous breast parenchyma BI-RADS CATEGORY: 2 - BENIGN RECOMMENDATION: Screening bilateral mammogram is recommended in 1 year. Mammo Location: [facility], [address] [place] [address], [id number], . normal -------- FINAL REPORT -------- Dictated By: Michael Aquino Dictated Date: 11/19/2024 11:21 ET Assigned Physician: Michael Aquino Reviewed and Electronically Signed By: Michael Aquino Signed Date: 11/19/2024 11:26 ET Workstation ID: [id number] Transcribed By: Self Edit Transcribed Date: 11/19/2024 11:21 ET Narrative 11/19/2024 11:26 AM EST A BILATERAL DIGITAL 3D SCREENING MAMMOGRAPHY HISTORY: Routine screening. ??No family history of breast cancer. COMPARISON: Multiple priors dating back to 10/12/2020 Technique: Bilateral full field digital mammography (3D) was performed using standard CC and MLO projections CAD ??was used to evaluate this mammogram. FINDINGS: Right: No suspicious masses, groups of microcalcification or areas of architectural distortion identified. Stable typically benign parenchymal asymmetries. Left: No suspicious masses, groups of microcalcification or areas of architectural distortion identified. Stable typically benign parenchymal asymmetries. BREAST DENSITY: C - The breasts are heterogeneously dense which may obscure small masses. Procedure Note Michael Aquino MD - 11/19/2024 A BILATERAL DIGITAL 3D SCREENING MAMMOGRAPHY HISTORY: Routine screening. No family history of breast cancer. COMPARISON: Multiple priors dating back to 10/12/2020 Technique: Bilateral full field digital mammography (3D) was performedusing standard CC and MLO projections CAD was used to evaluate this mammogram. FINDINGS: Right: No suspicious masses, groups of microcalcification or areas ofarchitectural distortion identified. Stable typically benign parenchymalasymmetries. Left: No suspicious masses, groups of microcalcification or areas ofarchitectural distortion identified. Stable typically benign parenchymalasymmetries. BREAST DENSITY: C - The breasts are heterogeneously dense which mayobscure small masses. IMPRESSION: 1. No mammographic evidence of malignancy 2. Heterogeneous breast parenchyma BI-RADS CATEGORY: 2 - BENIGN RECOMMENDATION: Screening bilateral mammogram is recommended in 1 year. Mammo Location: [facility], [address] [place] [address], [id number], . normal -------- FINAL REPORT -------- Dictated By: Michael Aquino Dictated Date: 11/19/2024 11:21 ET Assigned Physician: Michael Aquino Reviewed and Electronically Signed By: Michael Aquino Signed Date: 11/19/2024 11:26 ET Workstation ID: [id number] Transcribed By: Self Edit Transcribed Date: 11/19/2024 11:21 ET Gosia Mcdaniel MD IMG BI PROCEDURES Final Result from Last 3 Months or Most Recently Relevant to Health Maintenance Insurance [facility] Care Teams Stemhole Borer And Topper Relationship Specialty Start Date End Date Gosia Mcdaniel MD PCP - General 12/12/22
== END 2025-02-26 10:23 | disposition home or self-care (01) ==
LOC: HO.HGI 09:30
PROVIDERS: PCP Internal Medicine; Visit Provider Nurse Practitioner Family
DX: K57.90 Diverticulosis of intestine, part unspecified, without perforation or abscess without bleeding (principal); R10.32 Left lower quadrant pain; R11.0 Nausea
CPT/HCPCS: 99214

== ENCOUNTER 2025-02-26 09:29 | Outpatient (REF) | payer OTHER, SELFPAY ==
[2025-02-26 11:50] LABS: Blood Urea Nitrogen 13 mg/dL (9-16); Estimated Glomerular Filt Rate > 60
--- OUTSIDE RECORDS SUMMARY | 2025-02-26 12:13 | XMS_ITS | Clinical Summary ---
Author Organization [address] Address [address] [place] [address] Phone Care Team Providers Care Primer Boxer Name Role Phone Gosia Mcdaniel MD Primary Care Provider [phone] Surgical History Surgery Date Site/Laterality Comments SECTION PROCEDURE: HISTORICAL DELIVERY; COMMENT: x 3 SALPINGOOPHORECTOMY 01/2019 Right PROCEDURE: [place] LAPAROSCOPY W/RMVL ADNEXAL STRUCTURES; COMMENT: Mucinous cystadenoma [...] is recommended in 1 year. Mammo Location: [facility], [address] [place] [address], [id number], . normal -------- FINAL REPORT -------- Dictated By: Michael Aquino Dictated Date: 11/19/2024 11:21 ET Assigned Physician: Michael Aquino Reviewed and Electronically Signed By: Michael Aquino Signed Date: 11/19/2024 11:26 ET Workstation ID: [id number] Transcribed By: Self Edit Transcribed Date: 11/19/2024 [...] is recommended in 1 year. Mammo Location: [facility], [address] [place] [address], [id number], . normal -------- FINAL REPORT -------- Dictated By: Michael Aquino Dictated Date: 11/19/2024 11:21 ET Assigned Physician: Michael Aquino Reviewed and Electronically Signed By: Michael Aquino Signed Date: 11/19/2024 11:26 ET Workstation ID: [id number] Transcribed By: Self Edit Transcribed Date: 11/19/2024 11:21 ET Gosia Mcdaniel MD IMG BI PROCEDURES Final Result from Last 3 Months or Most Recently Relevant to Health Maintenance Insurance [facility] Care Teams Primer Boxer Relationship Specialty Start Date End Date Gosia Mcdaniel MD PCP - General 12/12/22
[2025-02-26 12:19] LABS: Free T4 (Free Thyroxine) 1.07 ng/dL (0.71-1.85)
== END 2025-02-26 09:30 | disposition home or self-care (01) ==
LOC: HO.LAB 09:29
PROVIDERS: Student in an Organized Health Care Education/Training Program; PCP Internal Medicine; Visit Provider Nurse Practitioner Family
DX: E04.1 Nontoxic single thyroid nodule (principal); R10.11 Right upper quadrant pain; R10.32 Left lower quadrant pain; K57.90 Diverticulosis of intestine, part unspecified, without perforation or abscess without bleeding
CPT/HCPCS: 36415; 82565; 84439; 84443; 84520; 99212

== ENCOUNTER 2025-03-05 11:13 | Outpatient (REF) | payer OTHER, SELFPAY ==
--- NOTE | ~2025-03-05 | CT_ITS ---
EXAMINATION: CT ABDOMEN AND PELVIS WITH CONTRAST CLINICAL INFORMATION: Unspecified abdominal pain. COMPARISON: Correlated to ultrasound dated December 14, 2023 demonstrated small hepatic cyst and nonobstructing nephrolithiasis, bilaterally. TECHNIQUE: Multidetector volumetric images were obtained from the superior aspect of the liver through the pubic symphysis following administration 85 mL of Omnipaque 350 intravenous contrast. Sagittal and coronal reformatted images were obtained on the technologist's workstation. Oral contrast: Yes This CT examination was performed using dose optimization techniques as appropriate, variously including the following: *Automated exposure control *Adjustment of mA and/or kV according to patient size (this includes techniques or standardized protocols for targeted exams where dose is matched to indication/reason for exam; i.e. extremities or head) *Use of iterative reconstruction technique. DLP: 363 mGy centimeter. FINDINGS: LUNG BASES: No acute airspace disease. LIVER, GALLBLADDER, AND BILIARY TREE: Liver measures 16 cm. There are several, scattered, hypodense lesions throughout the hepatic parenchyma, the largest measures 10 mm in the dome of the left hepatic lobe which measures 21 Hounsfield units. Portal veins, hepatic veins and intrahepatic portions of the IVC are patent. No gallbladder is contracted. No pericholecystic fluid collection or gallbladder wall thickening. No intrahepatic or extrahepatic biliary ductal dilatation. PANCREAS: No focal mass. No main pancreatic ductal dilatation. No peripancreatic fluid collection. SPLEEN: 8 cm. No focal lesion. ADRENAL GLANDS: No nodular lesion. KIDNEYS AND URETERS: No renal mass. No hydronephrosis. No gross nephrolithiasis. Normal enhancement pattern of the renal parenchyma. BLADDER: Fluid-filled. GASTROINTESTINAL TRACT: Appendix is normal. No intestinal obstruction pattern. No pneumoperitoneum. No pneumatosis intestinalis. No ascites. No gross wall thickening and small or large intestine. ABDOMINAL WALL: Diastases abdominal rectus muscles protruding intra-abdominal contents in the perihilar umbilical region and fat-containing umbilical hernia. LYMPH NODES: Nonspecific mildly prominent in the mesenteric and retroperitoneum. VASCULAR: No aneurysm or dissection, abdominal aorta. PELVIC VISCERA: Absent uterus. OSSEOUS STRUCTURES: Spondylosis at L5-S1. No acute fracture or listhesis. Probable bony island right femoral head. CT/CT abdomen pelvis w IV con IMPRESSION: Hepatomegaly, mild. Multifocal hepatic cyst. Diastases abdominal rectus muscles protruding intra-abdominal organs in the umbilical region. Fleischner guidelines were followed. Electronically signed by: Erick Jaffe MD 03/05/2025 02:09 PM EDT RP
--- OUTSIDE RECORDS SUMMARY | 2025-03-05 13:16 | XMS_ITS | Clinical Summary ---
Author Organization [address] Address [address] [place] [address] Phone Care Team Providers Care It Architecture Consultant Name Role Phone Gosia Mcdaniel MD Primary Care Provider [phone] Surgical History Surgery Date Site/Laterality Comments SECTION PROCEDURE: HISTORICAL DELIVERY; COMMENT: x 3 SALPINGOOPHORECTOMY 01/2019 Right PROCEDURE: [place] LAPAROSCOPY W/RMVL ADNEXAL STRUCTURES; COMMENT: Mucinous cystadenoma [...] age to complete this topic Meningococcal B Vaccine Aged Out No l onger eligible based on patient's age to complete [...] is recommended in 1 year. Mammo Location: [facility], [address] [place] [address], [address], . normal -------- FINAL REPORT -------- Dictated By: Michael Aquino Dictated Date: 11/19/2024 11:21 ET Assigned Physician: Michael Aquino Reviewed and Electronically Signed By: Michael Aquino Signed Date: 11/19/2024 11:26 ET Workstation ID: [id number] Transcribed By: Self Edit Transcribed Date: 11/19/2024 [...] is recommended in 1 year. Mammo Location: [facility], [address] [place] [address], [address], . normal -------- FINAL REPORT -------- Dictated By: Michael Aquino Dictated Date: 11/19/2024 11:21 ET Assigned Physician: Michael Aquino Reviewed and Electronically Signed By: Michael Aquino Signed Date: 11/19/2024 11:26 ET Workstation ID: [id number] Transcribed By: Self Edit Transcribed Date: 11/19/2024 11:21 ET Gosia Mcdaniel MD IMG BI PROCEDURES Final Result from Last 3 Months or Most Recently Relevant to Health Maintenance Insurance [facility] [place] [address] Care Teams It Architecture Consultant Relationship Specialty Start Date End Date Gosia cMdaniel MD PCP - General 12/12/22
[2025-03-05] MEDS: iohexoL 350 MG/ML 100 ML INFUS..BTL IV (13:51)
[2025-03-05] MEDS: Barium Sulfate Oral (Vanilla) 450 ML ORAL.SUSP 900 ML PO (13:52)
== END 2025-03-05 11:14 | disposition home or self-care (01) ==
LOC: HO.CT 11:13
PROVIDERS: PCP Internal Medicine; Visit Provider Nurse Practitioner Family
DX: R10.32 Left lower quadrant pain (principal); R11.0 Nausea; K57.90 Diverticulosis of intestine, part unspecified, without perforation or abscess without bleeding
CPT/HCPCS: 74177; Q9967

== ENCOUNTER → 2025-03-05 11:15 | Outpatient (BNV) | payer OTHER, SELFPAY | PROVIDERS: PCP Internal Medicine; Visit Provider Radiology Diagnostic Radiology | DX: R10.9 Unspecified abdominal pain (principal) | CPT/HCPCS: 74177 ==

== ENCOUNTER 2025-04-02 08:54 | Outpatient (AMB) | payer OTHER, SELFPAY ==
[2025-04-02 08:56] VITALS: BP 118/80; PULSE 84; O2SAT 95; BMI 26.5
--- NOTE | 2025-04-02 08:56 | A.OFFVIS_ITS ---
Vital Signs 04/02/25 08:56 Height 5 ft 2 in Weight 145 lb BMI 26.5 BP 118/80 Blood Pressure Location Rt brachial Position Sitting Pulse 84 Pulse Source Pulse Oximeter Pulse Oximetry (%) 95 Oxygen Delivery Method Room Air Intake Visit Reasons: 4 wks f/u r/s 04/08/25 Intake Note: ESTABLISHED PATIENT for mgmt of chronic abd pain. Labs and imaging done. Chief Complaint; Pt denies any significant changes since last visit. Mental Health Specialist Required: No Accompanied by: Self / Same As Patient Allergies No Known Allergies Allergy (Verified 04/02/25 08:57) HPI HPI 4 wks f/u r/s 04/08/25: Details: LAST VISIT: Diverticulosis LLQ abdominal pain Nausea Plan After examining patient patient has mild tenderness to the left lower quadrant. Suspecting diverticulitis. Will order stat CT scan and will start her on Cipro. Will give her dicyclomine. Patient does not have any fever or chills. She can continue clear liquid diet today and take stool softeners to help her empty her bowels completely. Patient will follow-up in 4 weeks to re-evaluate. Patient will go to ED if she will have fever, chills, unable to tolerate p.o.. Patient is agreeable to this plan and verbalizes understanding all instructions if she was given the opportunity to ask questions and all questions answered. ? Thank you for allowing me to participate in her care Orders Orders CT abdomen pelvis w IV con Today K57.90, R10.32, R10.9, R11.0 Blood Urea Nitrogen Today R10.11 Creatinine Today R10.11 Medications New dicyclomine 10 mg PO TID 60 caps 2RF K58.9 ciprofloxacin HCl 500 mg PO BID 14 tabs 0RF TODAY'S VISIT Patient is here today for follow-up. Patient reports that she has been feeling better. Last visit patient had severe left lower quadrant pain. Was placed on Cipro, clear liquids preventively suspicion for diverticulitis. Patient had CT scan that ruled out diverticulitis. Patient reports that after the course of Cipro and clear liquid diet for couple of days and her symptoms went away. Currently she feels much better. Patient is trying to follow low FODMAP diet. Denies melena, hematochezia, unintentional weight loss or ribbon like stools. Patient denies dyspepsia, dysphagia or odynophagia. CT scan results discussed with patient. Multifocal liver cyst found. Diverticulitis not found. Patient reports occasional right upper quadrant pain. Patient describes this pain as more dull than sharp. Patient admits that she is eating salads with Mayonnaise. Patient reports that she also has been eating more. Patient admits that when she was taking berberine she had decreased appetite and she was eating list and lost weight. [facility] Medical History Diverticulosis Tubular adenoma PONV (postoperative nausea and vomiting) Gastric ulcer Arthritis Multinodular thyroid Hx of ovarian cyst Surgical History Hx of colonoscopy History of esophagogastroduodenoscopy (EGD) S/P removal of right ovary Hx of section Family History Father Substance use disorder Mother Hypothyroidism Maternal Grandmother Cervical cancer Social History Household Members Other:: works as hairdresser, dance for exercise Housing: House Alcohol intake: current Alcohol intake frequency: a few times a week Patient Tobacco Use Status: Former Tobacco user Tobacco use type: Cigarette Cigarettes Per Day: 4 e-Cigarette/Vaping Use: Never Used Current occupational status: employed Cognitive needs: No Hearing needs: No Vision needs: Yes Review of Systems Const Denies weight gain and Denies weight loss ENT Reports no additional complaints, Denies dysphagia and Denies odynophagia Card Reports no additional complaints Resp Reports no additional complaints GI Denies abdominal pain, Denies belching, Denies melena, Denies bloating, Denies change in bowel habits, Denies dysphagia, Denies excessive flatus, Denies dyspepsia, Denies heartburn, Denies diarrhea, Denies loose stools, Denies nausea, Denies odynophagia and Denies vomiting Musc Reports no additional complaints Neuro Reports no additional complaints Psych Reports no additional complaints Endo Reports no additional complaints Physical Exam Vital Signs: Last Vital Signs Pulse 84 04/02/25 08:56 BP 118/80 04/02/25 08:56 Pulse Ox 95 04/02/25 08:56 Oxygen Delivery Method Room Air 04/02/25 08:56 BMI result Body Mass Index 26.5 Const General: healthy appearing, no acute distress and well developed Nutritional Appearance: well nourished Orientation/consciousness: patient oriented x3 Resp Effort & Inspection: normal respiratory effort, able to speak in complete sentences, no tracheal deviation and symmetric chest movement Auscultation: clear to auscultation bilaterally Cardio Rate: regular rate GI Inspection: Yes normal to inspection and No distended Palpation (GI): Soft to palpation, not firm, Tenderness to palpation present (GI) (LLQ) and No hepatosplenomegaly present Auscultation: normal bowel sounds General: Yes no CVA tenderness Back/Spine/Pelvis Back: no CVA tenderness Skin General skin exam: elasticity normal, turgor normal and dry skin Neuro General: patient oriented x3 Psych Appearance: grossly normal Mental Status: mental status grossly normal Results Reviewed Results Reviewed: CT SCAN OF ABDOMEN AND PELVIS 03/05/2025 FINDINGS: LUNG BASES: No acute airspace disease. LIVER, GALLBLADDER, AND BILIARY TREE: Liver measures 16 cm. There are several, scattered, hypodense lesions throughout the hepatic parenchyma, the largest measures 10 mm in the dome of the left hepatic lobe which measures 21 Hounsfield units. Portal veins, hepatic veins and intrahepatic portions of the IVC are patent. No gallbladder is contracted. No pericholecystic fluid collection or gallbladder wall thickening. No intrahepatic or extrahepatic biliary ductal dilatation. PANCREAS: No focal mass. No main pancreatic ductal dilatation. No peripancreatic fluid collection. SPLEEN: 8 cm. No focal lesion. ADRENAL GLANDS: No nodular lesion. KIDNEYS AND URETERS: No renal mass. No hydronephrosis. No gross nephrolithiasis. Normal enhancement pattern of the renal parenchyma. BLADDER: Fluid-filled. GASTROINTESTINAL TRACT: Appendix is normal. No intestinal obstruction pattern. No pneumoperitoneum. No pneumatosis intestinalis. No ascites. No gross wall thickening and small or large intestine. ABDOMINAL WALL: Diastases abdominal rectus muscles protruding intra-abdominal contents in the perihilar umbilical region and fat-containing umbilical hernia. LYMPH NODES: Nonspecific mildly prominent in the mesenteric and retroperitoneum. VASCULAR: No aneurysm or dissection, abdominal aorta. PELVIC VISCERA: Absent uterus. OSSEOUS STRUCTURES: Spondylosis at L5-S1. No acute fracture or listhesis. Probable bony island right femoral head. CT/CT abdomen pelvis w IV con IMPRESSION: Hepatomegaly, mild. Multifocal hepatic cyst. Diastases abdominal rectus muscles protruding intra-abdominal organs in the umbilical region. Assessment & Plan Assessment & Plan (1) Diverticulosis: Code(s): K57.90 - Diverticulosis of intestine, part unspecified, without perforation or abscess without bleeding Category: Medical (2) LLQ abdominal pain: Code(s): R10.32 - Left lower quadrant pain (3) RUQ abdominal pain: Code(s): R10.11 - Right upper quadrant pain (4) GERD (gastroesophageal reflux disease): Code(s): K21.9 - Gastro-esophageal reflux disease without esophagitis Qualifiers: Esophagitis presence: esophagitis presence not specified Qualified Code(s): K21.9 - Gastro-esophageal reflux disease without esophagitis Plan Patient is to continue avoiding dietary triggers. Avoid late night snacking. Increase fluid intake and activity to promote better bowel motility. 10 mm liver cyst, will repeat MRI with and without contrast. Patient was encouraged to increase fiber in her diet. Patient may start taking berberine again to help reduce her cravings. Patient will return to the office in 6 months, sooner on as needed basis. Patient is agreeable to this plan and verbalizes understanding of instructions. She was given the opportunity to ask questions and all questions answered. Thank you for allowing me to participate in her care Coding Level of Care Code Est Pt Level 3 (48052) Diagnoses Diverticulosis K57.90 LLQ abdominal pain R10.32 RUQ abdominal pain R10.11 Gastroesophageal reflux disease, unspecified whether esophagitis present K21.9 Esophagitis presence: esophagitis presence not specified Time Spent (min) 30 Comment 20 minutes spent with patient and additional 10 minutes spent reviewing her records
--- OUTSIDE RECORDS SUMMARY | 2025-04-02 09:20 | XMS_ITS | Encounter Summary ---
[facility] Address [address] [place] [address] Care Team Providers Care Excel Developer Name Role Phone Brynn Pizarro DO Primary Care Pro vider Unavailable Etienne Arrington MD Primary Care Provider Unavailab Rico Perez MD Primary Care Provide r Unavailable Brynn Pizarro DO Primary Care Pro vider Unavailable [facility], [facility] Primary Care Provider UnavailGosia Pederson MD Primary Care Provider Unavaila ble Encounter Details Date Type Department Care Team Description 09/06/2017 Orders Only Adult Medicine [address] [id number] Brynn Pizarro DO Thyroid nodule (Primary Dx) Social History Tobacco Use Types Packs/Day Years Used Date Smoking Tobacco: Some Days Cigarettes Last attempted to quit: 04/29/2015 Smokeless Tobacco: Never Comments:maybe 6 a week Alcohol Use Standard Drinks/Week Comments Yes 0 (1 standard drink = 0.6 oz pur e alcohol) socially Sex Assigned at Date Recorded Not on file Job Start Date Occupation Industry Not on file Not on file Not on file documented as of this encounter Plan of Treatment Not on file documented as of this encounter Results * (ABNORMAL) CBC (AUTO DIFF PLATELET) (09/19/2017 11:52 AM EDT) WBC 4.5(L) 4.8 - 10.8 x10-3 09/19/2017 1:00 PM EDT [facility] RBC 4.7 3.8 - 4.8 x10-6 09/19/2017 1:00 PM EDT [facility] HGB 14.2 11.5 - 16.0 g/dl 09/19/2017 1:00 PM EDT [facility] HCT 43.0 35 - 47 % 09/19/2017 1:00 PM EDT [facility] MCV 91.5 79 - 98 fl 09/19/2017 1:00 PM EDT [facility] MCH 30.2 27 - 32 pg 09/19/2017 1:00 PM EDT [facility] MCHC 33.0 32 - 37 g/dl 09/19/2017 1:00 PM EDT [facility] RDW 12.2 11 - 15 % 09/19/2017 1:00 PM EDT [facility] PLT COUNT 235 130 - 400 x10-3 09/19/2017 1:00 PM EDT [facility] MEAN PLATELET VOLUME 9.9 7 - 11 fl 09/19/2017 1:00 PM EDT [facility] NEUT % 45.1 41 - 85 % 09/19/2017 1:00 PM EDT [facility] LYMPH % 43.1 15 - 48 % 09/19/2017 1:00 PM EDT [facility] MONO % 7.1 0 - 12 % 09/19/2017 1:00 PM EDT [facility] EOS % 4.0 0 - 5 % 09/19/2017 1:00 PM EDT [facility] BASO % 0.7 0 - 2 % 09/19/2017 1:00 PM EDT [facility] 09/19/2017 11:5 2 AM EDT 09/19/2017 12:20 PM EDT Brynn Blanca DO LAB [facility] [address] [facility] * BASIC METABOLIC PANEL (09/19/2017 11:52 AM EDT) [facility] GLUCOSE 91 70 - 100 mg/dL 09/19/2017 2:32 PM EDT [facility] Comment: Reference range applicable to fasting specimens only Based on recommendations from the ADA and AACE, the fasting glucose reference range has been changed to 70-100 mg/dL. ??This change is effective April 12, 2010 BUN 13 5 - 25 mg/dL 09/19/2017 2:32 PM EDT [facility] CREAT 0.7 0.7 - 1.5 mg/dL 09/19/2017 2:32 PM EDT [facility] GFR > 60 >60 09/19/2017 2:32 PM EDT [facility] Comment: If patient is -Citizen Of The [place], multiply result by 1.21 Chronic Kidney Disease: < 60 ml/min/1.73 square meters Kidney Failure: < 15 ml/min/1.73 square meters Sodium 140 133 - 145 mEq/L 09/19/2017 2:32 PM EDT [facility] Potassium 4.5 3.5 - 5.5 mEq/L 09/19/2017 2:32 PM EDT [facility] Chloride 100 96 - 108 mEq/L 09/19/2017 2:32 PM EDT [facility] CO2 28.7 21.0 - 32.0 mEq/L 09/19/2017 2:32 PM EDT [facility] CALCIUM 9.9 8.5 - 10.5 mg/dL 09/19/2017 2:32 PM EDT [facility] 09/19/2017 11:5 2 AM EDT 09/19/2017 12:20 PM EDT Brynn Blanca DO LAB [facility] [address] [facility] * TSH (09/19/2017 11:52 AM EDT) TSH 1.01 0.40 - 4.00 mIU/ml 09/19/2017 2:32 PM EDT [facility] 09/19/2017 11:5 2 AM EDT 09/19/2017 12:20 PM EDT Brynn Blanca DO LAB [facility] [address] [facility] documented in this encounter Visit Diagnoses Diagnosis Thyroid nodule- Primary Nontoxic uninodular goiter documented in this encounter Care Teams Excel Developer Relationship Specialty Start Date End Date Brynn Pizarro DO PCP - General Internal Medicine 06/26/15 02/01/18 Etienne Arrington MD PCP - General Internal Medicine 02/02/18 07/27/18 Rico Holman MD PCP - General Internal Medicine 07/28/18 1 12/21/17 Brynn Pizarro DO PCP - General Internal Medicine 10/22/18 09/18/22 [facility], Pcp PCP - General Internal Medicine 09/19/22 12/11/22 Gosia Mcdaniel MD PCP - General Internal Medicine 12/12/22 documented as of this encounter
--- OUTSIDE RECORDS SUMMARY | 2025-04-02 09:21 | XMS_ITS | Encounter Summary ---
[facility] Address [address] [place] [address] Care Team Providers Care Oracle Etl Developer Name Role Phone Brynn Pizarro DO Primary Care Pro vider Unavailable [facility], Pcp Primary Care Provider Unavailabl e Cornelius Pizarroabela DO Primary Care Pro vider Unavailable Etienne Arrington MD Primary Care Provider Unavailab Rico Perez MD Primary Care Provide r Unavailable [facility] LucianooCorneliusBrynn DO Primary Care Pro vider Unavailable [facility], Pcp Primary Care Provider UnavailGosia Pederson MD Primary Care Provider Unavaila ble Encounter Details Date Type Department Care Team Description 06/01/2015 Release of Information Medical Records [address] [place] [id number] Abstract, Provider Social History Tobacco Use Types Packs/Day Years Used Date Smoking Tobacco: Former Cigarettes Q uit: 04/29/2015 Smokeless Tobacco: Never Comments:quit 2 months ago Alcohol Use Standard Drinks/Week Comments Yes 0 (1 standard drink = 0.6 oz pur e alcohol) socially Sex Assigned at Date Recorded Not on file Job Start Date Occupation Industry Not on file Not on file Not on file documented as of this encounter Plan of Treatment Not on file documented as of this encounter Visit Diagnoses Not on filedocumented in this encounter Care Teams Oracle Etl Developer Relationship Specialty Start Date End Date Brynn Pizarro DO PCP - General Internal Medicine 05/28/15 06/22/15 [facility], Pcp PCP - General Internal Medicine 06/23/15 06/25/15 Brynn Pizarro DO PCP - General Internal Medicine 06/26/15 02/01/18 Etienne Arrington MD PCP - General Internal Medicine 02/02/18 07/27/18 Rico Holman MD PCP - General Internal Medicine 07/28/18 1 12/21/17 Brynn Pizarro DO PCP - General Internal Medicine 10/22/18 09/18/22 [facility], Pcp PCP - General Internal Medicine 09/19/22 12/11/22 Gosia Mcdaniel MD PCP - General Internal Medicine 12/12/22 documented as of this encounter
--- OUTSIDE RECORDS SUMMARY | 2025-04-02 09:21 | XMS_ITS | Clinical Summary ---
Author Organization [facility] Address [address] [place] [address] Care Team Providers Care Tight Barrel Inspector Name Role Phone Gosia Mcdaniel MD Primary Care Provider Unavaila ble Allergies Active Allergy Reactions Severity Noted Date Comments Penicillins 10/01/2015 TOLERATES AUGMENTIN Medications Medication Sig Dispensed Refills Start Date End Date Status estradiol (ESTRACE) 0.1 MG/GM vaginal cream Apply 0.5 g nightly for two weeks 42.5 g 1 07/10/2023 Active estradiol (VIVELLE-DOT) 0.05 MG/24HR APPLY 1 PATCH TWICE A WEEK 24 Patch 1 05/24/2024 Active Active Problems Problem Noted Date Fatigue 12/13/2022 Last Assessment & Plan: CBC ordered to assess for anemia given history of prolonged vaginal bleeding. Postmenopausal bleeding while on transde rmal HT 11/17/2022 Last Assessment & Plan: At this time, I recommended that Lillie stay off the hormones indefinitely. She is ok with this given her vasomotor symptoms are not bothersome. Since she has been fully evaluated, no further intervention necessary for now unless bleeding would continue. Left leg pain 11/17/2022 Last Assessment & Plan: Sent to [facility] for stat left LE Duplex to rule out DVT. Pelvic pressure in female 09/24/2022 Last Assessment & Plan: Explained unclear etiology. No Mental Health Therapist cause likely based on exam and imaging. Could be related to scar tissue, but no intervention would be recommended if this is the case given could form more scar tissue. I recommended she follow up with her PCP if her pain continues as she may need additional imaging. She agreed. Intramural leiomyoma of uterus 2 Last Assessment & Plan: She still desires planned hysterectomy due to pressure sx with fibroids, and family history of uterine cancer. She will have this when she returns from vacation in April. History of radiation exposure 10/23/2020 Perimenopausal vasomotor symptoms 2019 Last Assessment & Plan: Continue HT as long as no further bleeding as noted. Family history of ovarian ca ncer- pt Counsyl Cancer Genetic Testing negative 08/06/2018 08/06/2018 Overview: Per pt, this was actually her grandmother who had cervical cancer. Thyroid nodule 08/24/2017 Last Assessment & Plan: She will follow up with her PCP as scheduled for this. Hyperthyroidism 05/29/2015 Overview: subacute thyroiditis, resolved with time Resolved Problems Problem Noted Date Resolved Date Cyst of right ovary 09/21/2017 02/25/2019 Overview: Post RSO - Mucinous cystadenoma - benign Immunizations Name Administration Dates Next Due Tdap 11/12/2018 Family History Medical History Relation Name Comments Diabetes Father liver disease, etoh; age 67 of head injury cervical cancer Maternal Grandmother with cervical cancer and widespread mets Thyroid Disorder Mother Had hyst at 46yo with precancerous cells, no cancer stomach cancer Other maternal grea t uncle; dx > age 70 Pneumonia Paternal Grandmother lung cancer Uncle paternal uncle; smoker CA Breast Negative Hx CA Colon Negative Hx CA Ovarian Negative Hx Cancer of the Pancreas Negative Hx Cancer of the Prostate Negative Hx Relation Name Status Comments Father Maternal Grandfather Maternal Grandmother Mother Alive Other Paternal Grandfather Paternal Grandmother Uncle Social History Tobacco Use Types Packs/Day Years Used Date Smoking Tobacco: Some Days Cigarettes 0.5 Last attempted to quit: 04/29/2015 Smokeless Tobacco: Never Tobacco Cessation:Ready to Q uit: Not Asked; Counseling Given: Not Answered Alcohol Use Standard Drinks/Week Comments Yes 0 (1 standard drink = 0.6 oz pur e alcohol) socially Sex Assigned at Date Recorded Not on file Job Start Date Occupation Industry Not on file Not on file Not on file Last Filed Vital Signs Vital Sign Reading Time Taken Comments Blood Pressure 120/89 07/27/2023 11:48 AM EDT Pulse 103 07/27/2023 11:48 AM EDT Temperature 36.5 ??C (97.7 ??F) 10/23/2020 11:[address] Respiratory Rate 14 07/27/2023 11:48 AM EDT Oxygen Saturation 97% 08/16/2017 1:42 PM EDT Inhaled Oxygen Concentration - - Weight 63.8 kg (140 lb 9.6 oz) 07/27/2023 11:48 AM EDT Height 157.5 cm (5' 2 ) 07/10/2023 3:08 PM EDT Body Mass Index 25.72 07/10/2023 3:08 PM EDT Plan of Treatment Health Maintenance Due Date Last Done Comments Covid-19 Vaccine (#1) 1970 HEPATITIS C SCREENING 1989 BASELINE HEALTH EXAM 40-64 10/03/201810/03, 10/03/2016, 10/05/2015, Additional history exists COLON CANCER SCREENING 2021 SHINGLES VACCINE (1 of 2) 2021 MAMMOGRAM 11/15/2024 11/15/2023, 10/27, 11/01/2021, Additional history exists BMI CHECK/ADVISE 11/27/2024 02/08/2021, , 09/11/2019, Additional history exists DEPRESSION SCREENING/FOLLOWUP 11/27/2024 11/18/2020 SOCIAL NEEDS SCREENING 11/27/2024 INFLUENZA (Season Ended) 2025 11/12/2018 (Refu sed) CHOLESTEROL SCREENING 10/26/2025 10/26/2020 , 11/21/2018, 10/05/2015 CERVICAL CANCER SCREENING 12/27/20272022, 02/05/2018, 08/21/2015 DTAP/TDAP/TD (2 - Td or Tdap) 11/12/2028 11/12/2018 PNEUMOCOCCAL VACCINE FOR HIG H RISK PATIENTS (#1) 2036 Care Teams Tight Barrel Inspector Relationship Specialty Start Date End Date Gosia Mcdaniel MD PCP - General Internal Medicine 12/12/22
--- OUTSIDE RECORDS SUMMARY | 2025-04-02 09:21 | XMS_ITS | Encounter Summary ---
Author Organization [facility] Address [address] [place] [address] Care Team Providers Care Auto Collision Repair Instructor Name Role Phone Brynn Pizarro DO Primary Care Pro vider Unavailable Community, Pcp Primary Care Provider Gosia Lozano MD Primary Care Provider Yovani fortune Encounter Details Date Type Department Care Team Description 10/31/2018 Telephone OBGYN - [address] [address] Karen Mancini MD Social History Tobacco Use Types Packs/Day Years Used Date Smoking Tobacco: Light Smoker Cigarettes Last attempted t o quit: 04/29/2015 Smokeless Tobacco: Never Comments:maybe 6 a week quit jul 2017 Alcohol Use Standard Drinks/Week Comments Yes 0 (1 standard drink = 0.6 oz pur e alcohol) socially Sex Assigned at Date Recorded Not on file Job Start Date Occupation Industry Not on file Not on file Not on file documented as of this encounter Miscellaneous Notes * Telephone Encounter - Silvia Varghese - 12/27/2018 11:09 AM EST No pt history in [employer] for a copy to Dr. Mancini and to scanning. AM * Telephone Encounter - Silvia Varghese - 12/21/2018 2:17 PM EST Pt surgery has been R/ S to 02/05/2019. Send a letter to pt, told her over the phone and added this info to the provider calender.AM * Telephone Encounter - Silvia Varghese - 12/11/2018 10:45 AM EST Laparoscopic right ovarian cystectomy, possible oophorectomy and surgery as indicated has been scheduled on 01/22/2019 at [facility] with Dr. Mancini. Patient has been notified by phone and a letter has been sent to her. MD calendar has been updated and schedulers have been notified. AM * Telephone Encounter - Silvia Varghese - 12/11/2018 10:23 AM EST Lillie Nance has been referred by Dr. Mancini to Dr. Schuster for preoperative consultation prior to undergoing surgery for laparoscopic right ovarian cystectomy, possible oophorectomy and surgeryas indicated. The consulting physician has been asked to review Lillie Nance's medical issues and to provide an opinion concerning the patients medical risks associated with surgery as well as any necessary preoperative and perioperative interventions. * Telephone Encounter - Silvia Varghese - 12/10/2018 2:49 PM EST Spoke with pt and provider her with her surgical date and time. Pt asked for me to call back in 15 min. So we may schedule her pre op appt. AM * Telephone Encounter - Karen Mancini MD - 10/31/2018 4:57 PM EST SET OFF PRESS OPERATOR SURGICAL BOOKING WORKSHEET 10/31/2018 Patient's Name: Lillie Nance : 1970 Payor information: Payor: [facility] / Plan: [facility] [employer] TYPE 2 / Product Type: HMO [id number] Allergies: Allergies Allergen Reactions ??? Penicillins TOLERATES AUGMENTIN LMP: No LMP recorded. Diagnosis: 1. Cyst of right ovary Surgery Procedure Planned: Laparoscopic right ovarian cystectomy, possible oophorectomy and surgeryas indicated Type of Anesthesia: General Stay: Daystay Location:[facility] Communications Attendant Needed? YES - Dr. Ghosh Time Needed: 90 minutes Urgency: Routine Medical Clearance? YES Pre Op BAT BOY/GIRL visit: YES Pap Needed at Pre Op Visit? NO documented in this encounter Plan of Treatment Scheduled Orders Name Type Priority Associated Diagnoses Orde r Schedule CBC (AUTO DIFF PLATELET) Lab Routine Preoperative examination Expected: 12/11/2018 (Approximate), Expires: 12/11/2019 BASIC METABOLIC PANEL Lab Routine Preoperative examination Expected: 12/11/2018 (Approximate), Expires: 12/11/2019 documented as of this encounter Visit Diagnoses Diagnosis Cyst of right ovary- Primary Other and unspecified ovarian cyst Preoperative examination Preoperative examination, unspecified Screening for deficiency anemia Screening for other and unspecified deficiency anemia documented in this encounter Care Teams Auto Collision Repair Instructor Relationship Specialty Start Date End Date Brynn Pizarro DO PCP - General Internal Medicine 10/22/18 09/18/22 [facility], Pcp PCP - General Internal Medicine 09/19/22 12/11/22 Gosia Mcdaniel MD PCP - General Internal Medicine 12/12/22 documented as of this encounter
--- OUTSIDE RECORDS SUMMARY | 2025-04-02 09:21 | XMS_ITS | Encounter Summary ---
Author Organization [employer] [facility] Address [address] [place] [address] Care Team Providers Care Hardware Supplies Sales Representative Name Role Phone Gosia Mcdaniel MD Primary Care Provider Yovani fortune Encounter Details Date Type Department Care Team Description 05/22/2023 Orders Only Medical Records [address] [place] [address] Concepcion Sanford MD [address] [place] [id number] Social History Tobacco Use Types Packs/Day Years [...] on file documented as of this encounter Procedures Procedure Name Priority Date/Time Associated Diagnosis Comments OUTSIDE PATHOLOGY Routine 05/17/2023 documented in this encounter Results * OUTSIDE PATHOLOGY (05/17/2023) Concepcion Sanford MD OUTSIDE LAB documented in this encounter Visit Diagnoses Not on filedocumented in this encounter Care Teams Hardware Supplies Sales Representative Relationship Specialty Start Date End Date Gosia Mcdaniel MD PCP - General Internal Medicine 12/12/22 documented as of this encounter
--- OUTSIDE RECORDS SUMMARY | 2025-04-02 09:21 | XMS_ITS | Encounter Summary ---
Author Organization [facility] Address [address] [place] [address] Care Team Providers Care Behavioral Assistant Name Role Phone [place] Colasacco, Brynn DO Primary Care Pro vider Unavailable Community, Pcp Primary Care Provider Unavailabl e [place] Colasacco, Brynn DO Primary Care Pro vider Unavailable Etienne Arrington MD Primary Care Provider Unavailab Rico Perez MD Primary Care Provide r Unavailable [place] Colasacco, Brynn DO Primary Care Pro vider Unavailable [facility], Pcp Primary Care Provider UnavailGosia Pederson MD Primary Care Provider Unavaila ble Reason for Visit * Reason Onset Date Comments Call From Hospital 06/22/2015 [facility] Encounter Details Date Type Department Care Team Description 06/22/2015 Telephone Adult Medicine [address] [address] Carlton Mosquera MD Call From Hospital ([facility]) Social History Tobacco Use Types Packs/Day Years [...] encounter Miscellaneous Notes * Telephone Encounter - Carlton Mosquera MD - 06/22/2015 11:50 AM EDT Noted, thank you. * Telephone Encounter - Viki Thurman R.N. - 06/22/2015 10:23 AM EDT paperwork faxed to [facility] Dr Eveline Leal' test date changes initial consult at [facility] on 06/23/15 test date at [facility] 06/24/[address] Mosquera rescheduled to Monday06/26/15 * Telephone Encounter - [facility] - 06/22/2015 9:19 AM EDT Linn from [facility] is calling to let us know that the patient was scheduled for thyroid uptake and scan. This appointment is not going to happen due to the fact that the appointment was made at 5 on Monday for 9 this morning. They do not have the necessary medicine and paperwork for this test. So they have rescheduled the appointment till tomorrow at 2. And the patient has an appointment with Dr. Mosquera on Monday but it is going to need to be rescheduled also. Fax [phone], please fax over orders and necessary paperwork for this test. PCP: Brynn Fermin [place] / Product Type: [place]ICAID [id number] documented in this encounter Plan of Treatment Not on file documented as of this encounter Visit Diagnoses Not on filedocumented in this encounter Care Teams Behavioral Assistant Relationship Specialty Start Date End Date Brynn Pizarro DO PCP - General Internal Medicine 05/28/15 06/22/15 [facility], Pcp PCP - General Internal Medicine 06/23/15 06/25/15 Brynn Pizarro DO PCP - General Internal Medicine 06/26/15 02/01/18 Etienne Arrington MD PCP - General Internal Medicine 02/02/18 07/27/18 Rico Holman MD PCP - General Internal Medicine 07/28/18 1 12/21/17 Brynn Pizarro DO PCP - General Internal Medicine 10/22/18 09/18/22 [facility], Pcp PCP - General Internal Medicine 09/19/22 12/11/22 Gosia Mcdaniel MD PCP - General Internal Medicine 12/12/22 documented as of this encounter
--- OUTSIDE RECORDS SUMMARY | 2025-04-02 09:21 | XMS_ITS | Encounter Summary ---
Author Organization [facility] Address [address] [place] [address] Care Team Providers Care Gis Software Developer Name Role Phone Gosia Mcdaniel MD Primary Care Provider Unavaila ble Reason for Visit * Reason Comments E-prescribe Rx Request Encounter Details Date Type Department Care Team Description 05/22/2024 Refill OBGYN - [place] [address] [place] [address] Concepcion Sanford MD [address] [place] [id number] E-prescribe Rx Request Social History Tobacco Use Types Packs/Day Years [...] encounter Miscellaneous Notes * Telephone Encounter - Chantell Farr - 05/23/2024 4:06 PM EDT WHEN WAS THE PATIENTS LAST ANNUAL BEAD FLIPPER EXAM? 12/27/22 Does patient have an upcoming appointment? No Want to only see Dr Snaford. No available appts open at this time. (THE MEDICATION REQUESTED IS ON THE MED LIST ABOVE) Did you check the Pharmacy information above?: YES Indicate how soon the patient needs the script: BY THE END OF THE DAY Patient would like script to be: E-PRESCRIBED/FAXED TO PHARMACY Is the doctor here today?: YES Can the message wait until the doctor returns?: NO Has the patient been told that the prescription will not be filled until the end of the day? NO Payor: [facility] / Plan: [facility] [place] / Product Type: MEDICAID RISK documented in this encounter Plan of Treatment Not on file documented as of this encounter Visit Diagnoses Not on filedocumented in this encounter Care Teams Gis Software Developer Relationship Specialty Start Date End Date Gosia Mcdaniel MD PCP - General Internal Medicine 12/12/22 documented as of this encounter
--- OUTSIDE RECORDS SUMMARY | 2025-04-02 09:21 | XMS_ITS | Clinical Summary ---
Author Organization [address] Address [address] [place] [address] Phone Care Team Providers Care Bench Mechanic Name Role Phone Gosia Mcdaniel MD Primary Care Provider [phone] Surgical History Surgery Date Site/Laterality Comments SECTION [...] Influencers of Health Screening 11/05/2022 COVID-19 Vaccine ( - season) 2024 11/05/2021, 09/24/2021 Influenza Vaccine (Season Ended) 2025 Breast Cancer Screening 11/18/2026 11/18/20 24, 11/15/2023, [...] is recommended in 1 year. Mammo Location: [facility], [address] [place] [address], [address], . normal -------- FINAL REPORT -------- Dictated By: Michael Aquino Dictated Date: 11/19/2024 11:21 ET Assigned Physician: Michael Aquino Reviewed and Electronically Signed By: Michael Aquino Signed Date: 11/19/2024 11:26 ET Workstation ID: [id number] Transcribed By: Self Edit Transcribed Date: 11/19/2024 [...] is recommended in 1 year. Mammo Location: [facility], [address] [place] [address], [address], . normal -------- FINAL REPORT -------- Dictated By: Michael Aquino Dictated Date: 11/19/2024 11:21 ET Assigned Physician: Michael Aquino Reviewed and Electronically Signed By: Michael Aquino Signed Date: 11/19/2024 11:26 ET Workstation ID: [id number] Transcribed By: Self Edit Transcribed Date: 11/19/2024 11:21 ET Gosia Mcdaniel MD IMG BI PROCEDURES Final Result from Last 3 Months or Most Recently Relevant to Health Maintenance Insurance [facility] Care Teams Bench Mechanic Relationship Specialty Start Date End Date Gosia Mcdaniel MD PCP - General 12/12/22
--- OUTSIDE RECORDS SUMMARY | 2025-04-02 09:21 | XMS_ITS | Encounter Summary ---
Author Organization [facility] Address [address] [place] [address] Care Team Providers Care Boiler House Mechanic Name Role Phone Brynn Pizarro DO Primary Care Pro vider Unavailable Community, Pcp Primary Care Provider Gosia Lozano MD Primary Care Provider Yovani fortune Encounter Details Date Type Department Care Team Description 12/28/2018 [facility] Medical Records [address] [place] [id number] Abstract, Provider Social History Tobacco Use Types [...] on filedocumented in this encounter Care Teams Boiler House Mechanic Relationship Specialty Start Date End Date Brynn Pizarro DO PCP - General Internal Medicine 10/22/18 09/18/22 Community, Pcp PCP - General Internal Medicine 09/19/22 12/11/22 Gosia Mcdaniel MD PCP - General Internal Medicine 12/12/22 documented as of this encounter
--- OUTSIDE RECORDS SUMMARY | 2025-04-02 09:21 | XMS_ITS | Encounter Summary ---
Author Organization [employer] [facility] Address [address] [place] [address] Care Team Providers Care Oil Well Pumper Name Role Phone Brynn Pizarro DO Primary Care Pro vider Unavailable Community, Pcp Primary Care Provider Gosia Lozano MD Primary Care Provider Yovani fortune Encounter Details Date Type Department Care Team Description 02/05/2019 [facility] Medical Records [address] [place] [address] Karen Mancini MD Social History Tobacco Use [...] on filedocumented in this encounter Care Teams Oil Well Pumper Relationship Specialty Start Date End Date Brynn Pizarro DO PCP - General Internal Medicine 10/22/18 09/18/22 [facility], Pcp PCP - General Internal Medicine 09/19/22 12/11/22 Gosia Mcdaniel MD PCP - General Internal Medicine 12/12/22 documented as of this encounter
== END 2025-04-02 09:32 | disposition home or self-care (01) ==
LOC: HO.HGI 08:54
PROVIDERS: PCP Internal Medicine; Visit Provider Nurse Practitioner Family
DX: K57.90 Diverticulosis of intestine, part unspecified, without perforation or abscess without bleeding (principal); R10.32 Left lower quadrant pain; R10.11 Right upper quadrant pain; K21.9 Gastro-esophageal reflux disease without esophagitis
CPT/HCPCS: 99213

== ENCOUNTER → 2025-04-02 08:54 | Outpatient (BNVA) | payer OTHER, SELFPAY | PROVIDERS: PCP Internal Medicine; Visit Provider Nurse Practitioner Family | DX: K57.90 Diverticulosis of intestine, part unspecified, without perforation or abscess without bleeding (principal); K21.9 Gastro-esophageal reflux disease without esophagitis; R10.32 Left lower quadrant pain; R10.11 Right upper quadrant pain | CPT/HCPCS: 99212 ==

== ENCOUNTER 2025-08-18 13:51 | Outpatient (AMB) | payer OTHER, SELFPAY ==
--- NOTE | 2025-08-18 13:56 | A.OFFPC_ITS ---
Vital Signs 08/18/25 13:57 Height 5 ft 2 in Weight 150 lb BMI 27.4 BP 122/70 Blood Pressure Location Rt brachial Position Sitting Pulse 90 Pulse Source Pulse Oximeter Pulse Oximetry (%) 99 Intake Visit Reasons: PE PHQ-9 needed. Allergies No Known Allergies Allergy (Verified 08/18/25 13:57) Medication List - Last Reconciled 08/18/25 by Gosia Mcdaniel MD estradiol 1 patch transdermal 2XW Tobacco use date assessed: 08/18/25 Dental Screening Dental Screen Date: 08/18/25 Did you have a dental visit in the last 12 months?: Yes Did you have a dental problem in the last 6 months where you did not have access to dental care?: No Was dental information given to patient?: Patient has dentist HPI PE PHQ-9 needed. HPI Details Pt presents for PE. PFSH Medical History (Updated 08/18/25 @ 15:10 by Gosia Mcdaniel MD) Hx of screening mammography Helicobacter pylori gastritis Thyroid nodule Diverticulosis Tubular adenoma PONV (postoperative nausea and vomiting) Gastric ulcer Arthritis Multinodular thyroid Hx of ovarian cyst Surgical History (Updated 08/18/25 @ 15:07 by Gosia Mcdaniel MD) S/P VICTOR M-BSO Hx of colonoscopy History of esophagogastroduodenoscopy (EGD) S/P removal of right ovary Hx of section Family History Father Substance use disorder Mother Hypothyroidism Maternal Grandmother Cervical cancer Social History Household Members Other:: works as Brain Paradeesser, dance for exercise Housing: House Alcohol intake: current Alcohol intake frequency: a few times a week Patient Tobacco Use Status: Former Tobacco user Tobacco use type: Cigarette Cigarettes Per Day: 4 e-Cigarette/Vaping Use: Never Used Current occupational status: employed Cognitive needs: No Hearing needs: No Vision needs: Yes Questionnaire PHQ-9 Over the last 2 weeks, how often have you been bothered by any of the following problems? 1. Little interest or pleasure in doing things: not at all 2. Feeling down, depressed, or hopeless: not at all 3. Trouble falling or staying asleep, or sleeping too much: not at all 4. Feeling tired or having little energy: not at all 5. Poor appetite or overeating: not at all 6. Feeling bad about yourself - or that you are a failure or have let yourself or your family down: not at all 7. Trouble concentrating on things, such as reading the newspaper or watching television: not at all 8. Moving or speaking so slowly that other people could have noticed. Or the opposite - being so fidgety or restless that you have been moving around a lot more than usual: not at all 9. Thoughts that you would be better off or of hurting yourself in some way: not at all Total score: 0 Depression Screening Interpretation: Negative Depression Screening Done: Yes [address] - PHQ-9 Billing: Yes Source: Developed by Drs. Davide Sadler, Kate Hays, Krishan Garcia and colleagues, with an educational lizzette from [employer]. Thrive Questionnaire Date Thrive assessed: 08/15/25 I am a: Patient What is your living situation today?: I have a steady place to live Within the past 12 months, did the food you bought not last and you didn't have the money to get more?: Never true Within the past 12 months, did you worry whether your food would run out before you got money to buy more?: Never true Do you have trouble paying for medicines?: No Do you have trouble getting transportation to medical appointments?: No Do you have trouble paying your heating and electricity bill?: No Do you have trouble taking care of your child, family member or friend?: No Do you have trouble with day-to-day activities such as bathing, preparing meals, shopping, managing finances, etc.?: No Are you currently unemployed and looking for a job?: No Are you interested in more education?: No Please select the resources that you would like help with: None THRIVE Score: 0 AUDIT C Alcohol Use Questionnaire (AUDIT-C) 1. How often do you have a drink containing alcohol?: Monthly or less 2. How many drinks containing alcohol do you have on a typical day when you are drinking?: 1 or 2 3. How often do you have six or more drinks on one occasion?: Never Total Score: 1 Score Reviewed/Action Taken: Yes AN-7 AMB Questionnaire AN-7 Date AN - 7 assessed: 08/18/25 Feeling nervous, anxious, or on edge: 0 = Not at all Not being able to stop or control worryin = Not at all Worrying too much about different things: 0 = Not at all Trouble relaxin = Not at all Being so restless that it is hard to sit still: 0 = Not at all Becoming easily annoyed or irritable: 0 = Not at all Feeling afraid as if something awful might happen: 0 = Not at all Total AN-7 score (0-4 normal; 5-9 mild; 10-14 moderate; 15-21 severe): 0 Source: Developed by Drs. Davide Sadler, Kate Hays, Krishan Garcia and colleagues, with an educational lizzette from [employer]. AN-7 Assessment Billing AN-7 Assessment Tool: AN-7 Assessment 75544 Review of Systems Const All systems reviewed & are unremarkable except as noted in HPI and below Eyes Reports no additional complaints ENT Reports no additional complaints Card Reports no additional complaints Resp Reports no additional complaints GI Reports no additional complaints Reports no additional complaints Physical exam (Primary Care) Vital Signs: Last Vital Signs Pulse 90 08/18/25 13:57 BP 122/70 08/18/25 13:57 Pulse Ox 99 08/18/25 13:57 BMI result Body Mass Index 27.4 Tobacco/Smoking Status: Tobacco use Status Tobacco use date assessed 08/18/25 08/18/25 13:59 Patient Tobacco Use Status Former Tobacco user 08/18/25 13:59 Tobacco use type Cigarette 08/18/25 13:59 e-Cigarette/Vaping Use Never Used 08/18/25 13:59 PHQ-9: PHQ-9 Score PHQ-9: Total score 0 08/18/25 14:28 Depression Screening Interpretation: Negative Thrive Assessment: Date of Thrive Assessment Date Thrive assessed 08/15/25 08/18/25 13:59 Const General: no acute distress HENMT Head: Yes normal to inspection Ears: hearing grossly normal bilaterally General nose exam: Normal external nose present Face and sinus: Yes normal facial exam Mouth: Normal oral and palatal mucosa present Throat: Yes posterior oropharynx normal Eyes General: appearance normal, both eyes and all related structures Neck Neck: Yes no lymphadenopathy and Yes supple Thyroid: diffusely enlarged Resp Effort & Inspection: normal respiratory effort Auscultation: clear to auscultation bilaterally Cardio Rhythm: regular rhythm Heart sounds: S1 normal heart sound present and S2 normal heart sound present GI Inspection: Yes normal to inspection Palpation (GI): Soft to palpation Percussion: Yes normal to percussion Auscultation: normal bowel sounds Coding Level of Care Code Est Pt Prev Care 40-64y(04277) Diagnoses Annual physical exam Z00. Thyroid nodule E04.1 Multinodular thyroid E04.2 Additional Codes AN-7 Assessment Billing - AN-7 Assessment Tool: AN-7 Assessment 49643 ([id number]) PHQ-9 - 17614 - PHQ-9 Billing: Yes ([id number]) Assessment & Plan Assessment & Plan (1) Annual physical exam: Code(s): Z00.00 - Encounter for general adult medical examination without abnormal findings Category: Medical Plan: Well-balanced diet regular physical activity discussed with the patient. She will return for fasting blood work. She is up-to-date with mammogram at [place] and is due for repeat colonoscopy next January because of history of colon polyp TA (2) Thyroid nodule: Comment: S/P BX L mid polar 01/2023 negative, multiple biopsies in the past at [place] Code(s): E04.1 - Nontoxic single thyroid nodule Category: Medical Plan: Repeat thyroid ultrasound to follow-up, patient is contemplating repeat thyroid biopsy (3) Multinodular thyroid: Comment: 08/2024 thyroid nodules: R 1.9x1.1x0.8, cat 4, 1.1x0.7x0.9: Left 1.6x1.5x1.8 cat 4, 1.6x1.4x1.4 , Hx of multiple bx in the past [place] Code(s): E04.2 - Nontoxic multinodular goiter Category: Medical Plan: Repeat thyroid ultrasound Orders: Orders Comprehensive [place]. Panel Fast Today E04.1 - Nontoxic single thyroid nodule, E55.9 - Vitamin D deficiency, unspecified, Z00.00 - Encounter for general adult medical examination without abnormal findings Complete Blood Count Auto Diff Today E04.1 - Nontoxic single thyroid nodule, E55.9 - Vitamin D deficiency, unspecified, Z00.00 - Encounter for general adult medical examination without abnormal findings Lipid Panel Today E04.1 - Nontoxic single thyroid nodule, E55.9 - Vitamin D deficiency, unspecified, Z00.00 - Encounter for general adult medical examination without abnormal findings Comprehensive Met. Panel 1 Year E04.2 - Nontoxic multinodular goiter, Z00.00 - Encounter for general adult medical examination without abnormal findings Complete Blood Count Auto Diff 1 Year E04.2 - Nontoxic multinodular goiter, Z00.00 - Encounter for general adult medical examination without abnormal findings Lipid Panel 1 Year E04.2 - Nontoxic multinodular goiter, Z00.00 - Encounter for general adult medical examination without abnormal findings Vitamin D 25-OH Total 1 Year E04.2 - Nontoxic multinodular goiter, Z00.00 - Encounter for general adult medical examination without abnormal findings UA w Microscopic 1 Year E04.2 - Nontoxic multinodular goiter, Z00.00 - Encounter for general adult medical examination without abnormal findings TSH reflex Free T4 Today E04.1 - Nontoxic single thyroid nodule, E55.9 - Vitamin D deficiency, unspecified, Z00.00 - Encounter for general adult medical examination without abnormal findings UA w Microscopic Today E04.1 - Nontoxic single thyroid nodule, E55.9 - Vitamin D deficiency, unspecified, Z00.00 - Encounter for general adult medical examination without abnormal findings Vitamin D 25-OH Total Today E04.1 - Nontoxic single thyroid nodule, E55.9 - Vitamin D deficiency, unspecified, Z00.00 - Encounter for general adult medical examination without abnormal findings US thyroid Today E04.2 - Nontoxic multinodular goiter TSH reflex Free T4 1 Year E04.2 - Nontoxic multinodular goiter, Z00.00 - Encounter for general adult medical examination without abnormal findings Medications: Refilled estradiol apply 1 patch for 3 days alternating with 1 patch for 4 days each week 1 patch transdermal 2XW 24 ea 3RF
[2025-08-18 13:57] VITALS: BP 122/70; PULSE 90; O2SAT 99; BMI 27.4
== END 2025-08-18 14:45 | disposition home or self-care (01) ==
LOC: HO.HMCC 13:51
PROVIDERS: PCP Internal Medicine; Visit Provider Internal Medicine
DX: Z00.00 Encounter for general adult medical examination without abnormal findings (principal); E04.1 Nontoxic single thyroid nodule; E04.2 Nontoxic multinodular goiter

== ENCOUNTER → 2025-08-18 13:51 | Outpatient (BNVA) | payer OTHER, SELFPAY | PROVIDERS: PCP Internal Medicine; Visit Provider Internal Medicine | DX: Z00.00 Encounter for general adult medical examination without abnormal findings (principal); E04.2 Nontoxic multinodular goiter; E55.9 Vitamin D deficiency, unspecified | CPT/HCPCS: 96127; 99396 ==

== ENCOUNTER 2025-08-19 09:22 | Outpatient (REF) | payer OTHER, SELFPAY ==
--- OUTSIDE RECORDS SUMMARY | 2025-08-19 11:05 | XMS_ITS | Encounter Summary ---
Author Organization [facility] Address [address] [place] [address] Care Team Providers Care Printing Supervisor Name Role Phone Gosia Mcdaniel MD Primary Care Provider Unavaila ble Reason for Visit * Reason Comments E-prescribe Rx Request Encounter Details Date Type Department Care Team Description 05/22/2024 Refill OBGYN - [place] [address] [place] [address] Concepcion Sanford MD [address] [place] [id number] E-prescribe Rx Request Social History Tobacco Use [...] EDT WHEN WAS THE PATIENTS LAST ANNUAL MACHINE DEBURRER EXAM? 12/27/22 Does patient have an upcoming appointment? No Want to only see Dr Sanford. No available appts open at this time. [...] the end of the day? NO Payor: [facility] [employer] / Plan: [facility] / Product Type: MEDICAID RISK documented in this encounter Plan of Treatment Not on file documented as of this encounter Visit Diagnoses Not on filedocumented in this encounter Care Teams Printing Supervisor Relationship Specialty Start Date End Date Gosia Mcdaniel MD PCP - General Internal Medicine 12/12/22 documented as of this encounter
--- OUTSIDE RECORDS SUMMARY | 2025-08-19 11:05 | XMS_ITS | Encounter Summary ---
Author Organization [facility] Address [address] [place] [address] Care Team Providers Care Record Clerk Salesperson Name Role Phone Brynn Pizarro DO Primary Care Pro vider Unavailable Community, Pcp Primary Care Provider Gosia Lozano MD Primary Care Provider Yovani fortune Encounter Details Date Type Department Care Team Description 10/31/2018 Telephone OBGYN - [address] [address] Karen Mancini MD Social History Tobacco Use [...] 11:09 AM EST No pt history in [facility] for a copy to Dr. Mancini and [...] indicated has been scheduled on 01/22/[address] [facility] [address] Mancini. Patient has been notified [...] Mancini MD - 10/31/2018 4:57 PM EST OIL INSPECTOR SURGICAL BOOKING WORKSHEET 10/31/2018 Patient's Name: Lillie Nance : 1970 Payor information: Payor: [facility] / Plan: [facility] [employer]VER TYPE 2 / Product Type: HMO Pxy-bdh-Vacdwcu Allergies: Allergies Allergen Reactions ??? Penicillins TOLERATES AUGMENTIN LMP: No LMP recorded. Diagnosis: 1. Cyst of right ovary Surgery Procedure Planned: Laparoscopic right ovarian cystectomy, possible oophorectomy and surgeryas indicated Type of Anesthesia: General Stay: Daystay Location:[facility] Offset Assistant Press Operator Needed? YES - Dr. Ghosh Time Needed: 90 minutes Urgency: Routine Medical Clearance? YES Pre Op CASH APPLICATIONS MANAGER visit: YES Pap Needed at Pre Op [...] anemia documented in this encounter Care Teams Record Clerk Salesperson Relationship Specialty Start Date End Date Brynn Pizarro DO PCP - General Internal Medicine 10/22/18 09/18/22 [facility], Pcp PCP - General Internal Medicine 09/19/22 12/11/22 Gosia Mcdaniel MD PCP - General Internal Medicine 12/12/22 documented as of this encounter
--- OUTSIDE RECORDS SUMMARY | 2025-08-19 11:05 | XMS_ITS | Encounter Summary ---
Author Organization [facility] Address [address] [place] [address] Care Team Providers Care Gse Mechanic Name Role Phone Community, Pcp Primary Care Provider Gosia Lozano MD Primary Care Provider Yovani fortune Encounter Details Date Type Department Care Team Description 11/17/2022 Orders Only OBGYN - [place] [address] [place] [address] Concepcion Sanford MD [address] [place] [id number] Left leg pain Social History Tobacco Use Types Packs/Day Years Used Date Smoking Tobacco: Some Days Cigarettes 0.5 Last attempted to quit: 04/29/2015 Smokeless Tobacco: Never Alcohol Use Standard Drinks/Week Comments Yes 0 (1 standard drink = 0.6 oz pur e alcohol) socially Sex Assigned at Date Recorded Not on file Job Start Date Occupation Industry Not on file Not on file Not on file COVID-19 Exposure Response Date Recorded In the last 10 days, have yo u been in contact with someone who was confirmed or suspected to have Coronavirus/COVID-19? No / Unsure 11/17/2022 10:44 AM EST documented as of this encounter Plan of Treatment Not on file documented as of this encounter Procedures Procedure Name Priority Date/Time Associated Diagnosis Comments [place] DUP-SCAN XTR VEINS UNILATERAL/LIMITED STUDY STAT 11/17/2022 Left leg pain documented in this encounter Results * EXTREMITY VEINS STUDY, UNILATERAL (11/17/2022) Concepcion Sanford MD ULTRASOUND PVCA documented in this encounter Visit Diagnoses Diagnosis Left leg pain Pain in limb documented in this encounter Care Teams Gse Mechanic Relationship Specialty Start Date End Date Community, Pcp PCP - General Internal Medicine 09/19/22 12/11/22 Gosia Mcdaniel MD PCP - General Internal Medicine 12/12/22 documented as of this encounter
--- OUTSIDE RECORDS SUMMARY | 2025-08-19 11:05 | XMS_ITS | Encounter Summary ---
[facility] Address [address] [place] [address] Care Team Providers Care Cordwood Cutter Helper Name Role Phone Brynn Pizarro DO Primary Care Pro vider Unavailable Etienne Arrington MD Primary Care Provider Unavailab Rico Perez MD Primary Care Provide r Unavailable Brynn Pizarro DO Primary Care Pro vider Unavailable [facility] Primary Care Provider UnavailGosia Pederson MD Primary Care Provider Unavaila ble Encounter Details Date Type Department Care Team Description 09/06/2017 Orders Only Adult Medicine [address] [address] Brynn Pizarro DO Thyroid nodule (Primary Dx) [...] - 10.8 x10-3 09/19/2017 1:00 PM EDT [facility] RBC 4.7 3.8 - 4.8 x10-6 09/19/2017 1:00 PM EDT [facility] HGB 14.2 11.5 - [...] - 37 g/dl 09/19/2017 1:00 PM EDT [facility] RDW 12.2 11 - 15 % 09/19/2017 1:00 PM EDT [facility] PLT COUNT 235 130 - 400 x10-3 09/19/2017 1:00 PM EDT [facility] MEAN PLATELET VOLUME 9.9 7 - 11 fl 09/19/2017 1:00 PM EDT [facility] NEUT % 45.1 41 - 85 % 09/19/2017 1:00 PM EDT [facility] LYMPH % 43.1 15 - 48 % 09/19/2017 1:00 PM EDT [facility] MONO % 7.1 0 - 12 % 09/19/2017 1:00 PM EDT [facility] EOS % 4.0 0 - 5 % 09/19/2017 1:00 PM EDT [facility] BASO % 0.7 0 - 2 % 09/19/2017 1:00 PM EDT [facility] 09/19/2017 11:5 2 AM EDT 09/19/2017 12:20 PM EDT Brynn Blanca DO LAB [facility] [address] [facility] * BASIC METABOLIC PANEL (09/19/2017 11:52 AM EDT) [facility] GLUCOSE 91 70 - 100 mg/dL 09/19/2017 2:32 PM EDT [facility] Comment: Reference range applicable to fasting specimens only Based on recommendations from the ADA and AACE, the fasting glucose reference range has been changed to 70-100 mg/dL. This change is effective April 12, 2010 BUN 13 5 - 25 mg/dL 09/19/2017 2:32 PM EDT [facility] CREAT 0.7 0.7 - 1.5 mg/dL 09/19/2017 2:32 PM EDT [facility] GFR > 60 >60 09/19/2017 2:32 PM EDT [facility] Comment: If patient is -Cub[place], multiply result by 1.21 Chronic Kidney Disease: < 60 ml/min/1.73 square meters Kidney Failure: < 15 ml/min/1.73 square meters Sodium 140 133 - 145 mEq/L 09/19/2017 2:32 PM EDT [facility] Potassium 4.5 3.5 - 5.5 mEq/L 09/19/2017 2:32 PM EDT [facility] Chloride 100 96 - 108 mEq/L 09/19/2017 2:32 PM EDT [facility] CO2 28.7 21.0 - 32.0 mEq/L 09/19/2017 2:32 PM EDT [facility] CALCIUM 9.9 8.5 - 10.5 mg/dL 09/19/2017 2:32 PM EDT [facility] 09/19/2017 11:5 2 AM EDT 09/19/2017 12:20 PM EDT Brynn Blanca DO LAB [facility] [address] [facility] * TSH (09/19/2017 11:52 AM EDT) TSH 1.01 0.40 - 4.00 mIU/ml 09/19/2017 2:32 PM EDT [facility] 09/19/2017 11:5 2 AM EDT 09/19/2017 12:20 PM EDT Brynn Blanca DO LAB [facility] [address] [facility] documented in this encounter Visit Diagnoses Diagnosis Thyroid nodule- Primary Nontoxic uninodular goiter documented in this encounter Care Teams Cordwood Cutter Helper Relationship Specialty Start Date End Date Brynn Pizarro DO PCP - General Internal Medicine 06/26/15 02/01/18 Etienne Arrington MD PCP - General Internal Medicine 02/02/18 07/27/18 Rico Holman MD PCP - General Internal Medicine 07/28/18 1 12/21/17 Brynn Pizarro DO PCP - General Internal Medicine 10/22/18 09/18/22 [facility], Pcp PCP - General Internal Medicine 09/19/22 12/11/22 Gosia Mcdaniel MD PCP - General Internal Medicine 12/12/22 documented as of this encounter
--- OUTSIDE RECORDS SUMMARY | 2025-08-19 11:05 | XMS_ITS | Encounter Summary ---
Author [facility] Address [address] [place] [address] Care Team Providers Care Arcade Technician Name Role Phone Brynn Pizarro DO Primary Care Pro vider Unavailable Community, Pcp Primary Care Provider Gosia Lozano MD Primary Care Provider Yovani fortune Encounter Details Date Type Department Care Team Description 01/10/2019 Orders Only Medical Records [address] [place] [address] Brynn Pizarro DO Social History Tobacco Use Types Packs/Day Years [...] Name Priority Date/Time Associated Diagnosis Comments OUTSIDE LOOP RECORDER Routine 12/08/2018 documented in this encounter Results * OUTSIDE LOOP RECORDER (12/08/2018) Brynn Blanca DO CARDIOLOG Y documented in this encounter Visit Diagnoses Not on filedocumented in this encounter Care Teams Arcade Technician Relationship Specialty Start Date End Date Brynn Pizarro DO PCP - General Internal Medicine 10/22/18 09/18/22 [facility], Pcp PCP - General Internal Medicine 09/19/22 12/11/22 Gosia Mcdaniel MD PCP - General Internal Medicine 12/12/22 documented as of this encounter
--- OUTSIDE RECORDS SUMMARY | 2025-08-19 11:05 | XMS_ITS | Encounter Summary ---
Author Organization [facility] Address [address] [place] [address] Care Team Providers Care Supervisor Wet Pour Name Role Phone Brynn Pizarro DO Primary Care Pro vider Unavailable Etienne Arrington MD Primary Care Provider Unavailab Rico Perez MD Primary Care Provide r Unavailable Brynn Pizarro DO Primary Care Pro vider Unavailable [facility], [facility] Primary Care Provider UnavailGosia Pederson MD Primary Care Provider Unavaila ble Reason for Visit * Reason Onset Date Comments APPOINTMENT 09/21/2017 Encounter Details Date Type Department Care Team Description 09/21/2017 Telephone Radiology - [address] [address] Jennifer Ghosh MD APPOINTMENT Social History Tobacco Use Types Packs/Day Years [...] encounter Miscellaneous Notes * Telephone Encounter - Corky Mixon - 09/21/2017 11:47 AM EDT Pt scheduled for an ultrasound for f/u of cyst. Order was put in for a . A new order needsto be entered and radiology will schedule. Thank you documented in this encounter Plan of Treatment Not on file documented as of this encounter Visit Diagnoses Not on filedocumented in this encounter Care Teams Supervisor Wet Pour Relationship Specialty Start Date End Date Brynn Pizarro DO PCP - General Internal Medicine 06/26/15 02/01/18 Etienne Arrington MD PCP - General Internal Medicine 02/02/18 07/27/18 Rico Holman MD PCP - General Internal Medicine 07/28/1812/21/17 Brynn Pizarro DO PCP - General Internal Medicine 10/22/18 09/18/22 [facility], Pcp PCP - General Internal Medicine 09/19/22 12/11/22 Gosia Mcdaniel MD PCP - General Internal Medicine 12/12/22 documented as of this encounter
--- OUTSIDE RECORDS SUMMARY | 2025-08-19 11:05 | XMS_ITS | Encounter Summary ---
[facility] Address [address] [place] [address] Care Team Providers Care Police Chief Name Role Phone Brynn Pizarro DO Primary Care Pro vider Unavailable Community, Pcp Primary Care Provider Unavailabl e Cornelius Pizarroabela DO Primary Care Pro vider Unavailable Etienne Arrington MD Primary Care Provider Unavailab Rico Perez MD Primary Care Provide r Unavailable Ward LucianooCorneliusBrynn DO Primary Care Pro vider Unavailable [facility], Pcp Primary Care Provider UnavailGosia Pederson MD Primary Care Provider Unavaila ble Encounter Details Date Type Department Care Team Description 06/01/2015 Release of Information Medical Records [address] [place] [id number] Abstract, Provider Social History Tobacco Use Types [...] on filedocumented in this encounter Care Teams Police Chief Relationship Specialty Start Date End Date Brynn [...] PCP - General Internal Medicine 10/22/18 09/18/22 [facility], Pcp PCP - General Internal Medicine 09/19/22 12/11/22 Gosia Mcdaniel MD PCP - General Internal Medicine 12/12/22 documented as of this encounter
--- OUTSIDE RECORDS SUMMARY | 2025-08-19 11:05 | XMS_ITS | Encounter Summary ---
Author Organization [facility] Address [address] [place] [address] Care Team Providers Care Tile Layer Supervisor Name Role Phone Brynn Pizarro DO Primary Care Pro vider Unavailable [facility], Pcp Primary Care Provider Gosia Lozano MD Primary Care Provider Yovani fortune Encounter Details Date Type Department Care Team Description 12/28/2018 [facility] Medical Records [address] [place] [id number] Abstract, Provider Social History Tobacco Use Types [...] on filedocumented in this encounter Care Teams Tile Layer Supervisor Relationship Specialty Start Date End Date Brynn Pizarro DO PCP - General Internal Medicine 10/22/18 09/18/22 Community, Pcp PCP - General Internal Medicine 09/19/22 12/11/22 Gosia Mcdaniel MD PCP - General Internal Medicine 12/12/22 documented as of this encounter
--- OUTSIDE RECORDS SUMMARY | 2025-08-19 11:05 | XMS_ITS | Clinical Summary ---
Author Organization [address] Address [address] [place] [address] Phone Care Team Providers Care Transit Driver Name Role Phone Gosia Mcdaniel MD Primary Care Provider [phone] Surgical History Surgery Date Site/Laterality Comments SECTION PROCEDURE: HISTORICAL DELIVERY; COMMENT: x 3 SALPINGOOPHORECTOMY 01/2019 Right PROCEDURE: DC LAPAROSCOPY W/RMVL ADNEXAL STRUCTURES; COMMENT: Mucinous cystadenoma [...] Years (1 of 2 - PCV) 1990 Cervical Cancer Screening: HPV 1992 Zoster Vaccines (1 of 2) 2021 Cholesterol Screening (Lipid Panel) 11/05/2022 Colorectal Cancer Screening: Colonoscopy 11/05/2022 HIV Screening 11/05/2022 Hepatitis C Screening 11/05/2022 Social Influencers of Health Screening 11/05/2022 Depression Screening 11/27/2024 COVID-19 Vaccine ( season) 2025 11/05/2021, 09/24/2021 Influenza Vaccine (#1) 2025 Breast Cancer Screening 11/18/2026 11/18/20 24, [...] is recommended in 1 year. Mammo Location: [facility], [address] [place] [address], [address], . normal -------- FINAL REPORT -------- Dictated By: Michael Aquino Dictated Date: 11/19/2024 11:21 ET Assigned Physician: Michael Aquino Reviewed and Electronically Signed By: Michael Aquino Signed Date: 11/19/2024 11:26 ET Workstation ID: [id number] Transcribed By: Self Edit Transcribed Date: 11/19/2024 11:21 ET Narrative 11/19/2024 11:26 AM EST A BILATERAL DIGITAL 3D SCREENING MAMMOGRAPHY HISTORY: Routine screening. No family history of breast cancer. COMPARISON: Multiple priors dating back to 10/12/2020 Technique: Bilateral full field digital mammography (3D) was performed using standard CC and MLO projections CAD was [...] is recommended in 1 year. Mammo Location: [facility], [address] [place] [address], [id number], . normal -------- FINAL REPORT -------- Dictated By: Michael Aquino Dictated Date: 11/19/2024 11:21 ET Assigned Physician: Michael Aquino Reviewed and Electronically Signed By: Michael Aquino Signed Date: 11/19/2024 11:26 ET Workstation ID: [id number] Transcribed By: Self Edit Transcribed Date: 11/19/2024 11:21 ET us Gosia Mcdaniel MD IMG BI PROCEDURES Final Resul t from Last 3 Months or Most Recently Relevant to Health Maintenance Insurance [facility] PL[facility] Care Teams Transit Driver Relationship Specialty Start Date End Date Gosia Mcdaniel MD PCP - General 12/12/22
--- OUTSIDE RECORDS SUMMARY | 2025-08-19 11:05 | XMS_ITS | Encounter Summary ---
Author [facility] Address [address] [place] [address] Care Team Providers Care Steel Hanger Name Role Phone Brynn Pizarro DO Primary Care Pro vider Unavailable Etienne Arrington MD Primary Care Provider Unavailab Rico Perez MD Primary Care Provide r Unavailable Brynn Pizarro DO Primary Care Pro vider Unavailable [facility], [facility] Primary Care Provider UnavailGosia Pederson MD Primary Care Provider Unavaila ble Reason for Referral * Non GRACIELA (Routine) - Authorized/Booked Specialty Diagnoses / Procedures Referred By Bonifacio crain Referred To Contact Dermatology Procedures REFERRAL TO DERMATOLOGY Brynn Pizarro DO [address] [place] [address] Derm/[address] [address] Referral ID Status Reason Start Date Expiration Date V isits Requested Visits Authorized [id number] Authorized/B ooked 10/01/2015 09/30/2016 1 1 Encounter Details Date Type Department Care Team Description 10/01/2015 [facility] [address] [place] [id number] Brynn Pizarro DO Social History Tobacco Use [...] on filedocumented in this encounter Care Teams Steel Hanger Relationship Specialty Start Date End Date Brynn [...]
[2025-08-19 13:27] LABS: Appearance Urine Clear; Glucose Urine UA Negative (Negative); PH 6.0 (5.0-9.0); Specific Gravity - Urine 1.015 (1.005-1.025)
[2025-08-19 13:41] LABS: MANUAL DIFF FLAG NO
[2025-08-19 13:48] LABS: Hematocrit 39.6 % (37.0-47.0); Hemoglobin 13.1 g/dl (12.0-16.0); Mean Corpuscular HGB Conc 33.1 g/dl (31.0-35.0); Mean Corpuscular Hemoglobin 30.6 pg (27.0-33.0); Mean Corpuscular Volume 92.5 fL (80.0-98.0); Platelet Count 223 X10*3/uL (160-400); Red Blood Count 4.28 X10*6/uL (4.20-5.50); White Blood Count 4.2 X10*3/uL (4.8-10.8)
[2025-08-19 13:49] LABS: Imm Gran Abs Auto 0.02 X10*3/uL (0.00-0.03); Imm Gran Pct Auto 0.5 % (0.0-0.4); Lymphocytes Absolute Auto 1.7 X10*3/uL (1.2-4.9); NRBC Abs Auto 0.000 X10*3/uL (0.0-0.012); NRBC Pct Auto 0.0 /100WBC (0.0-0.2)
[2025-08-19 14:30] LABS: Alanine Aminotransferase 19 U/L (0-31); Albumin Level 4.4 g/dL (3.5-5.0); Alkaline Phosphatase 58 U/L (39-117); Anion Gap 12 (12-20); Aspartate Amino Transferase 29 U/L (5-31); Blood Urea Nitrogen 14 mg/dL (9-16); Calcium 9.0 mg/dL (8.4-10.2); Carbon Dioxide 25 mmol/L (22-29); Chloride 107 mmol/L (96-108); Cholesterol 222 mg/dL (<200); Estimated Glomerular Filt Rate > 60; HDL Cholesterol 69 mg/dL (>40); Potassium 4.1 mmol/L (3.3-5.1); Sodium 140 mmol/L (135-145); Total Protein 6.9 g/dL (6.5-8.0); Triglycerides 144 mg/dL (<150)
== END 2025-08-19 09:23 | disposition home or self-care (01) ==
LOC: HO.HMGCLDS 09:22
PROVIDERS: PCP Internal Medicine; Visit Provider Internal Medicine
DX: Z00.00 Encounter for general adult medical examination without abnormal findings (principal); E04.1 Nontoxic single thyroid nodule; E55.9 Vitamin D deficiency, unspecified
CPT/HCPCS: 36415; 80053; 80061; 81001; 82306; 84443; 85025

== ENCOUNTER 2025-10-10 14:27 | Outpatient (REF) | payer OTHER, SELFPAY ==
--- NOTE | ~2025-10-10 | US_ITS ---
EXAMINATION: US THYROID CLINICAL INFORMATION: E 04.2. Nontoxic multinodular goiter. COMPARISON: September 05, 2024 TECHNIQUE: Linear transducer grayscale and color Doppler examination with attention to the region of the thyroid. FINDINGS: SIZE: Measurements of the thyroid lobes and nodules are given in sagittal, anteroposterior and transverse dimensions respectively. Right Thyroid Lobe: 5.7 x 1.6 x 1.8 cm, volume 8.4 mL. Previous: 6.0 x 1.9 x 1.8 cm, volume: 10.7 cc. Parenchyma: The gland echotexture is heterogeneous. Thyroid vascularity is increased. Left Thyroid Lobe: 5.0 x 1.9 x 2.2 cm, volume 10.9 mL. Previous: 6.1 x 2.2 x 2.2 cm, volume: 15.5 cc. Parenchyma: The gland echotexture is heterogeneous. Thyroid vascularity is increased. Isthmus: 0.48 cm in maximum AP dimension. Previous: 0.60 cm. Estimated total number of nodules greater than or equal to 1 cm: 4. Quality Improvement Engineer nodules are described as follows: 1. Location: Lower pole right lobe. Size: 0.75 x 0.7 x 1.1 cm, volume 0.26 mL. No seen on the previous exam. Nodule characteristics: Composition: Mixed cystic and solid (1). Echogenicity: Hypoechoic (2). Shape: Not taller than wide (0). Margins: Smooth (0). Echogenic Foci: None (0). ACR TI-RADS total points: 3 ACR TI-RADS category: 3 2. Location: Midportion right lobe. Size: 2.1 x 1.1 x 1.3 cm, volume 1.6 mL. Previous: 1.9 x 1.1 x 0.8 cm, volume: 0.82 cc Nodule characteristics: Composition: Mixed cystic and solid (1). Echogenicity: Isoechoic (1). Shape: Not taller than wide (0). Margins: Smooth (0). Echogenic Foci: Punctate echogenic foci (3). ACR TI-RADS total points: 5 ACR TI-RADS category: 4 3. Location: Lower pole left lobe. Size: 2.0 x 1.3 x 1.5 cm, volume 2.1 mL. Previous: 1.6 x 1.4 x 1.4 cm, volume: 1.7 cc. Nodule characteristics: Composition: Mixed cystic and solid (1). Echogenicity: Hypoechoic (2). Shape: Not taller than wide (0). Margins: Smooth (0). Echogenic Foci: Punctate echogenic foci (3). ACR TI-RADS total points: 6 ACR TI-RADS category: 4 4. Location: Midportion left lobe. Size: 0.84 x 0.9 x 0.95 cm, volume 0.42 mL. Previous: 1.6 x 1.5 x 1.8 cm, volume: 2.2 cc. Nodule characteristics: Composition: Mixed cystic and solid (1). Echogenicity: Very hypoechoic (3). Shape: Not taller than wide (0). Margins: Smooth (0). Echogenic Foci: Punctate echogenic foci (3). ACR TI-RADS total points: 7 ACR TI-RADS category: 5 5. Location: Midportion left lobe. Size: 1.1 x 0.87 x 1.1 cm, volume 0.53 mL. No seen on the previous exam. Nodule characteristics: Composition: Mixed cystic and solid (1). Echogenicity: Isoechoic (1). Shape: Not taller than wide (0). Margins: Smooth (0). Echogenic Foci: Punctate echogenic foci (3). ACR TI-RADS total points: 5 ACR TI-RADS category: 4 NODES: No lymphadenopathy is seen in the tissue surrounding the thyroid gland. US/US thyroid IMPRESSION: ACR TI RADS category 5, 4 and 3. 2 New nodules not identified on the prior exam. ACR TI-RADS RECOMMENDATION REFERENCE: Ultrasound-guided fine-needle aspiration, followup ultrasound, no further follow up. * TR1 (0 point) and TR2 (2 points): No FNA or follow up. * TR3 (3 points): FNA if more than or equal to 2.5 cm in maximum dimension, followup ultrasound in 1, 3 and 5 years if 1.5 to 2.4 cm in maximum dimension. * TR4 (4-6 points): FNA if more than or equal to 1.5 cm in maximum dimension, followup ultrasound in 1, 2, 3 and 5 years if 1 to 1.4 cm in maximum dimension. * TR5 (more than or equal to 7 points): FNA if more than or equal to 1 cm in maximum dimension, followup ultrasound every year for 5 years if 0.5 to 0.9 cm in maximum dimension. * TR3, TR4 or TR5 nodules that are below the size threshold for followup receive no follow up. Electronically signed by: Erick Jaffe MD 10/10/2025 03:58 PM [facility]
--- OUTSIDE RECORDS SUMMARY | 2025-10-10 21:30 | XMS_ITS | Clinical Summary ---
Author Organization [address] Address [address] [place] [address] Phone Care Team Providers Care Mixing Place Supervisor Name Role Phone Gosia Mcdaniel MD Primary Care Provider [phone] Surgical History Surgery Date Site/Laterality Comments SECTION PROCEDURE: HISTORICAL DELIVERY; COMMENT: x 3 SALPINGOOPHORECTOMY 01/2019 Right PROCEDURE: DE LAPAROSCOPY W/RMVL ADNEXAL STRUCTURES; COMMENT: Mucinous cystadenoma [...] Health Maintenance Due Date Last Done Comments Colorectal Cancer Screening: Colonoscopy 1971 Hepatitis B Vaccines (1 of 3 - 19+ 3-dose series) 1990 Pneumococcal Vaccine: 50+ Years (1 of 2 - PCV) 1990 Cervical Cancer Screening: HPV 1992 Zoster Vaccines (1 of 2) 2021 Cholesterol Screening (Lipid Panel) 11/05/2022 HIV Screening 11/05/2022 Hepatitis C Screening 11/05/2022 Social Influencers of Health Screening 11/05/2022 Depression Screening 11/27/2024 COVID-19 Vaccine ( - 2024- season) 2025 11/05/2021, 09/24/2021 Influenza Vaccine (#1) 2025 Breast Cancer Screening 11/18/2026 11/18/20 24, 11/15/2023, 11/07/2022, Additional history exists DTaP,Tdap,and Td Vaccines (2 - Td or Tdap) 11/12/2028 11/12/2018 RSV Immunization Adult Patients (1 - 1-dose 75+ series) 2046 HIB Vaccines Aged Out No longer eligi [...] is recommended in 1 year. Mammo Location: [facility], [address] [place] [address], [address], . normal -------- FINAL REPORT -------- Dictated By: Michael Aquino Dictated Date: 11/19/2024 11:21 ET Assigned Physician: Michael Aquino Reviewed and Electronically Signed By: Michael Aquino Signed Date: 11/19/2024 11:26 ET Workstation ID: [id number] Transcribed By: Self Edit Transcribed Date: 11/19/2024 [...] is recommended in 1 year. Mammo Location: [facility], [address] [place] [address], [address], . normal -------- FINAL REPORT -------- Dictated By: Michael Aquino Dictated Date: 11/19/2024 11:21 ET Assigned Physician: Michael Aquino Reviewed and Electronically Signed By: Michael Aquino Signed Date: 11/19/2024 11:26 ET Workstation ID: [id number] Transcribed By: Self Edit Transcribed Date: 11/19/2024 11:21 ET us Gosia Mcdaniel MD IMG BI PROCEDURES Final Resul t from Last 3 Months or Most Recently Relevant to Health Maintenance Insurance [facility] Care Teams Mixing Place Supervisor Relationship Specialty Start Date End Date Gosia Mcdaniel MD PCP - General 12/12/22
== END 2025-10-10 14:28 | disposition home or self-care (01) ==
LOC: HO.HMGCX 14:27
PROVIDERS: PCP Internal Medicine; Visit Provider Internal Medicine
DX: E04.2 Nontoxic multinodular goiter (principal)
CPT/HCPCS: 76536

== ENCOUNTER → 2025-10-10 14:30 | Outpatient (BNV) | payer OTHER, SELFPAY | PROVIDERS: PCP Internal Medicine; Visit Provider Radiology Diagnostic Radiology | DX: E04.2 Nontoxic multinodular goiter (principal) | CPT/HCPCS: 76536 ==